=== PATIENT | male | born 1955 | race Caucasian/White ===

== ENCOUNTER 2017-05-25 06:30 | Outpatient (CLI) | payer BC ==
[~2017-05-25] VITALS: Ht 182.9 cm; Wt 106.6 kg
[~2017-05-25 06:30] MED LIST: AMLO5TAB2 PO; BNZ40T PO; CLON1000 PO; HCTZ12.5T PO; NEBI5TAB8 PO; NITR0.3T6 SL
[2017-05-25] MEDS ORDERED: DOXA4TAB PO (08:31)
[2017-05-25] MEDS ORDERED: BNZ40T PO (08:40)
[2017-05-25] MEDS ORDERED: NEBI5TAB8 PO (08:40)
[2017-05-25] MEDS ORDERED: AMLO5TAB2 PO (08:40)
== END 2017-05-25 08:42 ==
LOC: PREOP 06:30
PROVIDERS: ATTEND Surgery
DX: Z01.818 Encounter for other preprocedural examination (principal); L98.8 Other specified disorders of the skin and subcutaneous tissue

== ENCOUNTER 2017-05-30 10:35 | Day surgery (SDC) | payer BC, OTHER ==
[~2017-05-30] VITALS: Ht 182.9 cm; Wt 106.6 kg
[~2017-05-30 10:35] MED LIST changes: +DOXA4TAB PO
--- OUTSIDE RECORDS SUMMARY | 2017-05-30 10:37 | XMS REPORT | Continuity of Care Document ---
Author Author [facility] Organization [facility] Address Unknown Phone Unavailable Allergies Active Description Code Type Severity Reaction Onset Reported/Identified Relationship to Patient Clinical Status Yes nisoldipine [id number] Drug Allergy Moderate INCREASED HR AN 11/28/2011 Medications Problems Date Dx Coded Attending Type Code Diagnosis Diagnosed By 10/01/2015 CHUCK GARDINER MD Ot R05 10/01/2015 CHUCK GARDINER MD Ot R09.89 05/29/2016 CHUCK GARDINER MD Ot R05 COUGH 05/29/2016 CHUCK GARDINER MD Ot R09.89 OTH SYMPTOMS AND SIGNS INVOLVING THE CIR 05/29/2016 OSITO WHITLEY DO Ot M23.8X2 OTHER INTERNAL DERANGEMENTS OF LEFT KNEE 05/30/2016 OSITO WHITLEY DO Ot M23.8X2 OTHER INTERNAL DERANGEMENTS OF LEFT KNEE 06/13/2016 OSITO WHITLEY DO Ot M23.8X2 OTHER INTERNAL DERANGEMENTS OF LEFT KNEE 03/12/2017 CHUCK GARDINER MD Ot R05 COUGH 03/12/2017 CHUCK GARDINER MD Ot R09.89 OTH SYMPTOMS AND SIGNS INVOLVING THE CIR 03/12/2017 OSITO WHITLEY DO Ot M23.8X2 OTHER INTERNAL DERANGEMENTS OF LEFT KNEE 03/13/2017 CHUCK GARDINER MD Ot R05 COUGH 03/13/2017 CHUCK GARDINER MD Ot R09.89 OTH SYMPTOMS AND SIGNS INVOLVING THE CIR 03/13/2017 OSITO WHITLEY DO Ot M23.8X2 OTHER INTERNAL DERANGEMENTS OF LEFT KNEE Procedures Results Encounters ACCT No. Visit Date/Time Discharge Status Pt. Type Provider Facility Loc./Unit Complaint [id number] 05/29/2016 07:52:00 2015 23:59:59 CLS Outpatient OSITO WHITLEY DO [facility] RAD TMM LT KNEE [id number] 04/28/2016 11:20:00 2015 23:59:59 CLS Outpatient ISABELA BUSBY APRN [facility] QUICK [id number] 09/20/2015 10:28:00 2015 23:59:59 CLS Outpatient ZULEYKA WISDOM, CHUCK Ramos [facility] RAD COUGH,FEVER [id number] 05/30/2017 12:30:00 PEN Preadmit TIFFANI WISDOM, RICHELLE Morales [facility]
[2017-05-30] MEDS ORDERED: fentaNYL INJECTION 100 MCG/2 ML AMP ONE (11:02)
[2017-05-30] MEDS ORDERED: proPOfol 200 MG/20 ML (DIPRIVAN) VIAL IV ONE (11:02)
[2017-05-30] MEDS ORDERED: MIDAZOLAM 2 MG/2 ML (VERSED) VIAL ONE (11:02)
[2017-05-30] MEDS ORDERED: ONDANSETRON 4 MG/2 ML (SDV) Z0FRAN ONE (11:02)
[2017-05-30] MEDS ORDERED: SEVOFLURANE (ULTANE) 15 ML INHAL SOLN ONE ×4 (11:02→13:22)
[2017-05-30] MEDS ORDERED: DEXAMETHASONE 10 MG/ML (DECADRON) 1 ML VIAL ONE (11:02)
[2017-05-30] MEDS ORDERED: LIDOCAINE PF 2% 5 ML (XYLOCAINE) VIAL ONE (11:02)
[2017-05-30] MEDS ORDERED: CATHETER FLUSH 10 ML SYR IV PRN (11:15)
[2017-05-30] MEDS ORDERED: ceFAZolin 2 GM/NS 50 ML IV ONE (11:15)
[2017-05-30 11:22] VITALS: BP 176/109
[2017-05-30] MEDS ORDERED: BUP/EPI 0.5% 1:200,000 (MARCAINE) 10ML VIAL IJ ONE (11:56)
[2017-05-30] MEDS ORDERED: LACTATED RINGERS 1,000 ML IV PRN (12:00)
--- NOTE | 2017-05-30 12:17 | Progress Note-Pre Operative ---
Pre-Operative Progress Note H&P Reviewed The H&P was reviewed, patient examined and no changes noted. Date Seen by Provider: May 17, 2017 Time Seen by Provider: 13:20 Date H&P Reviewed: May 30, 2017 Time H&P Reviewed: 12:16 Pre-Operative Diagnosis: Skin lesions 6 RICHELLE NIXON MD May 30, 2017 12:17 pm
--- NOTE | 2017-05-30 13:58 | Operative Report ---
Operative Report Date of Procedure/Surgery May 30, 2017 Surgeon (s) RICHELLE NIXON MD Armature Winder Helper Repair (s): Zayra Dixon (Med Student) Post-Operative Diagnosis Same Procedure Performed Excision of skin lesions 6 Description of Procedure Anesthesia Type: General Estimated blood loss (mL): Minimal Specimen(s) collected/removed skin lesions 6 Description of the Procedure Indication for procedure: This gentleman presented with a pigmented lesions varying in size from 1-3 cm, involving the right distal leg, left distal leg and the left proximal leg, right medial and lateral thigh and the left postauricular region, requiring histologic confirmation. He was therefore offered full-thickness excision under general anesthetic to achieve this. Informed consent was obtained after reviewing the procedures in detail. Description of procedures:he was placed supine on the operative table and general anesthesia induced. IV antibiotics were administered to prevent wound infection. The involved areas were prepared and draped in the usual sterile manner. 1. Excision of skin lesion right leg: After adequate and septic perforation, an elliptical incision about 2 cm long was made and the lesion excised down to the subcutaneous tissue. The defect was approximated using 3-0 nylon sutures 2. Excision of skin lesion left distal leg: A similar excision was performed by making an incision 2 cm long by 1 cm wide. The defect was closed using 4-0 nylon sutures 3.Excision of 2 cm skin lesion left proximal leg: The vertical incision about 2- 1/2 cm long by 1/2 cm wide was made and the lesion excised down to the subcutaneous tissue. It was approximated using 4-0 nylon, in an interrupted fashion. 4. Excision of lesion right medial thigh: this was the largest of all the lesions measuring at least 3 cm in diameter. An elliptical incision about 5 cm long by 4 cm in width was made, in a transverse fashion and the lesion excised down to the subcutaneous tissue. Hemostasis was achieved using cautery and the defect closed using interrupted 4-0 nylon sutures. 5. Excision of lesion right lateral thigh: An incision about 2 cm in length by 1/2 cm in width was made in a transverse fashion and lesion excised down to the subcutaneous tissue. The defect was closed using interrupted 4-0 nylon sutures. 6. Excision of lesion left postauricular region: An elliptical incision 2 cm long by 1/2 cm in width was made and the lesion excised down to the subcutaneous tissue. The defect was closed using 6-0 nylon in an interrupted fashion. Pre--emptive analgesia was established using after percent Marcaine with epinephrine around each of the lesions independently. He tolerated the procedure well, was extubated in the operating room and taken to the recovery room in a stable condition. Findings of the Procedure See op report Allergies and Home Medications Allergies Coded Allergies: nisoldipine (Unverified Allergy, Intermediate, INCREASED HR AND RED SKIN , 05/25/17) Home Medications Amlodipine Besylate 5 Mg Tablet, 5 MG PO DAILY, (Reported) Benazepril HCl 40 Mg Tab, 40 MG PO DAILY, (Reported) Doxazosin Mesylate 4 Mg Tablet, 4 MG PO BID, (Reported) Nebivolol HCl 5 Mg Tablet, 5 MG PO DAILY, (Reported) RICHELLE NIXON MD May 30, 2017 1:58 pm
[2017-05-30] MEDS ORDERED: HYDR-3812 PO (13:59)
[2017-05-30] MEDS ORDERED: morphine INJ 10 MG/ML 1ML (SYR OR VIAL) IVP PRN (14:00)
[2017-05-30] MEDS ORDERED: ONDANSETRON 4 MG/2 ML (SDV) Z0FRAN IVP PRN (14:00)
--- NOTE | 2017-05-30 14:00 | Discharge Inst-Simple/Standard ---
Discharge Inst-Standard Discharge Medications New, Converted or Re-Newed RX: RX on Chart Patient Instructions/Follow Up Plan of Care/Instructions/FU: Band-Aids may be removed in 48 hours. Follow-up with my nurse in 2 weeks for suture removal Activity as Tolerated: Yes Discharge Diet: No Restrictions RICHELLE NIXON MD May 30, 2017 2:00 pm
[2017-05-30 15:01] VITALS: BP 150/89
[2017-05-30 15:25] VITALS: BP 137/69
[2017-05-30 15:30] VITALS: BP 137/69
== END 2017-05-30 15:45 | disposition home or self-care (01) ==
LOC: SDC 10:35
PROVIDERS: ATTEND Surgery
DX: D23.71 Other benign neoplasm of skin of right lower limb, including hip (principal); L57.0 Actinic keratosis; L82.1 Other seborrheic keratosis; Z11.2 Encounter for screening for other bacterial diseases; I10 Essential (primary) hypertension; Z79.899 Other long term (current) drug therapy; Z87.891 Personal history of nicotine dependence
CPT/HCPCS: 87081

== ENCOUNTER 2017-11-30 09:22 | Outpatient (RCR) | payer BC ==
[2017-09-05 10:11] LABS: ABSOLUTE RETIC # 79 10e9/L (24-90); HEMATOCRIT 37 % (40-54); HEMOGLOBIN 12.3 G/DL (13.3-17.7); MEAN CORPUSCULAR HEMOGLOBIN 30 PG (25-34); MEAN CORPUSCULAR HGB CONC 33 G/DL (32-36); MEAN CORPUSCULAR VOLUME 92 FL (80-99); PLATELET COUNT 69 10^3/uL (130-400); RED BLOOD COUNT 4.06 10^6/uL (4.35-5.85); RED CELL DISTRIBUTION WIDTH 15.6 % (10.0-14.5); RETICULOCYTE % 1.94 % (0.50-2.40)
[2017-09-05 10:15] LABS: WHITE BLOOD COUNT 107.6 10^3/uL (4.3-11.0)
[2017-09-05 10:44] LABS: ALANINE AMINOTRANSFERASE 22 U/L (0-55); ALKALINE PHOSPHATASE 67 U/L (40-136); BILIRUBIN,TOTAL 0.4 MG/DL (0.1-1.0); BUN/CREATININE RATIO 21; CALCIUM 9.1 MG/DL (8.5-10.1); CARBON DIOXIDE 26 MMOL/L (21-32); CHLORIDE 104 MMOL/L (98-107); CREATININE SERUM 0.95 MG/DL (0.60-1.30); GFR ESTIMATED > 60; GLUCOSE 125 MG/DL (70-105); POTASSIUM 3.8 MMOL/L (3.6-5.0); SODIUM 140 MMOL/L (135-145); TOTAL PROTEIN 7.4 GM/DL (6.4-8.2)
[2017-09-05 10:47] LABS: ERYTHROCYTE SEDIMENTATION RATE 6 MM/HR (0-30)
[2017-09-05 11:24] LABS: BAND NEUTROPHILS 6 %; BASOPHILS % (MANUAL) 1 %; LYMPHOCYTES % (MANUAL) 3 %; METAMYELOCYTES % 22 %; MONOCYTES % (MANUAL) 6 %; MYELOCYTES % 8 %; NEUTROPHILS % (MANUAL) 54 %; RBC MORPH NORMAL
[2017-09-06 06:30] LABS: HEPATITIS C ANTIBODY C Non-Reactive (Non-Reactive)
[2017-09-20 08:31] LABS: BASOPHILS # (AUTO) 0.2 10^3/uL (0.0-0.1); BASOPHILS % (AUTO) 2 % (0-10); EOSINOPHILS # (AUTO) 0.1 10^3/uL (0.0-0.3); EOSINOPHILS % (AUTO) 1 % (0-10); HEMATOCRIT 35 % (40-54); LYMPHOCYTES # (AUTO) 1.2 X 10^3 (1.0-4.0); LYMPHOCYTES % (AUTO) 10 % (12-44); MEAN CORPUSCULAR HEMOGLOBIN 31 PG (25-34); MEAN CORPUSCULAR HGB CONC 34 G/DL (32-36); MEAN CORPUSCULAR VOLUME 90 FL (80-99); MEAN PLATELET VOLUME 9.4 FL (7.4-10.4); MONOCYTES # (AUTO) 0.6 X 10^3 (0.0-1.0); MONOCYTES % (AUTO) 5 % (0-12); NEUTROPHILS % (AUTO) 83 % (42-75); PLATELET COUNT 78 10^3/uL (130-400); RED BLOOD COUNT 3.92 10^6/uL (4.35-5.85); RED CELL DISTRIBUTION WIDTH 15.9 % (10.0-14.5)
[2017-09-20 08:51] LABS: ALANINE AMINOTRANSFERASE 29 U/L (0-55); ALBUMIN 3.9 GM/DL (3.2-4.5); ALKALINE PHOSPHATASE 57 U/L (40-136); BILIRUBIN,TOTAL 0.5 MG/DL (0.1-1.0); BUN/CREATININE RATIO 26; CALCIUM 8.8 MG/DL (8.5-10.1); CARBON DIOXIDE 23 MMOL/L (21-32); CHLORIDE 105 MMOL/L (98-107); CREATININE SERUM 0.84 MG/DL (0.60-1.30); GFR ESTIMATED > 60; GLUCOSE 149 MG/DL (70-105); POTASSIUM 3.9 MMOL/L (3.6-5.0); SODIUM 137 MMOL/L (135-145)
[2017-09-20 08:58] LABS: ANISOCYTOSIS SLIGHT; BAND NEUTROPHILS 5 %; BASOPHILS % (MANUAL) 5 %; EOSINOPHILS % (MANUAL) 1 %; LYMPHOCYTES % (MANUAL) 13 %; MONOCYTES % (MANUAL) 5 %; NEUTROPHILS % (MANUAL) 71 %; POIKILOCYTOSIS SLIGHT; POLYCHROMASIA SLIGHT; TOXIC GRANULATION/VACUOLAZATIO 1+
[2017-10-11 09:10] LABS: HEMOGLOBIN 11.2 G/DL (13.3-17.7); RED BLOOD COUNT 3.44 10^6/uL (4.35-5.85); WHITE BLOOD COUNT 3.3 10^3/uL (4.3-11.0)
[2017-10-11 09:11] LABS: BASOPHILS % (AUTO) 0 % (0-10); EOSINOPHILS % (AUTO) 0 % (0-10); HEMATOCRIT 33 % (40-54); LYMPHOCYTES # (AUTO) 0.5 X 10^3 (1.0-4.0); LYMPHOCYTES % (AUTO) 15 % (12-44); MEAN CORPUSCULAR HEMOGLOBIN 33 PG (25-34); MEAN CORPUSCULAR HGB CONC 34 G/DL (32-36); MEAN CORPUSCULAR VOLUME 97 FL (80-99); MEAN PLATELET VOLUME 8.8 FL (7.4-10.4); MONOCYTES # (AUTO) 0.2 X 10^3 (0.0-1.0); MONOCYTES % (AUTO) 7 % (0-12); NEUTROPHILS # (AUTO) 2.6 X 10^3 (1.8-7.8); NEUTROPHILS % (AUTO) 78 % (42-75); PLATELET COUNT 96 10^3/uL (130-400); RED CELL DISTRIBUTION WIDTH 21.9 % (10.0-14.5)
[2017-10-11 09:36] LABS: ALANINE AMINOTRANSFERASE 11 U/L (0-55); ALBUMIN 3.9 GM/DL (3.2-4.5); ALKALINE PHOSPHATASE 68 U/L (40-136); BILIRUBIN,TOTAL 0.9 MG/DL (0.1-1.0); BUN/CREATININE RATIO 16; CALCIUM 8.6 MG/DL (8.5-10.1); CARBON DIOXIDE 28 MMOL/L (21-32); CHLORIDE 105 MMOL/L (98-107); CREATININE SERUM 1.17 MG/DL (0.60-1.30); GFR ESTIMATED > 60; GLUCOSE 150 MG/DL (70-105); POTASSIUM 4.2 MMOL/L (3.6-5.0); SODIUM 137 MMOL/L (135-145); TOTAL PROTEIN 6.7 GM/DL (6.4-8.2)
[2017-11-09 08:37] LABS: BASOPHILS % (AUTO) 7 % (0-10); EOSINOPHILS % (AUTO) 2 % (0-10); HEMATOCRIT 31 % (40-54); HEMOGLOBIN 10.5 G/DL (13.3-17.7); LYMPHOCYTES # (AUTO) 0.3 X 10^3 (1.0-4.0); LYMPHOCYTES % (AUTO) 55 % (12-44); MEAN CORPUSCULAR HEMOGLOBIN 32 PG (25-34); MEAN CORPUSCULAR HGB CONC 34 G/DL (32-36); MEAN CORPUSCULAR VOLUME 94 FL (80-99); MEAN PLATELET VOLUME 8.5 FL (7.4-10.4); MONOCYTES # (AUTO) 0.2 X 10^3 (0.0-1.0); MONOCYTES % (AUTO) 34 % (0-12); NEUTROPHILS % (AUTO) 2 % (42-75); PLATELET COUNT 155 10^3/uL (130-400); RED BLOOD COUNT 3.32 10^6/uL (4.35-5.85)
[2017-11-09 08:45] LABS: WHITE BLOOD COUNT 0.6 10^3/uL (4.3-11.0)
[2017-11-09 09:01] LABS: ALANINE AMINOTRANSFERASE 14 U/L (0-55); ALBUMIN 3.7 GM/DL (3.2-4.5); ALKALINE PHOSPHATASE 74 U/L (40-136); BILIRUBIN,TOTAL 0.6 MG/DL (0.1-1.0); BUN/CREATININE RATIO 13; CALCIUM 8.6 MG/DL (8.5-10.1); CARBON DIOXIDE 25 MMOL/L (21-32); CHLORIDE 103 MMOL/L (98-107); CREATININE SERUM 1.17 MG/DL (0.60-1.30); GFR ESTIMATED > 60; GLUCOSE 183 MG/DL (70-105); POTASSIUM 3.7 MMOL/L (3.6-5.0); SODIUM 137 MMOL/L (135-145); TOTAL PROTEIN 6.8 GM/DL (6.4-8.2)
[2017-11-09 09:17] LABS: LYMPHOCYTES % (MANUAL) 58 %; NEUTROPHILS % (MANUAL) 7 %
[2017-11-09 09:18] LABS: EOSINOPHILS % (MANUAL) 1 %; MONOCYTES % (MANUAL) 34 %; RBC MORPH NORMAL
[2017-11-16 08:46] LABS: HEMATOCRIT 33 % (40-54); MEAN CORPUSCULAR HEMOGLOBIN 31 PG (25-34); MEAN CORPUSCULAR HGB CONC 34 G/DL (32-36); MEAN CORPUSCULAR VOLUME 93 FL (80-99); PLATELET COUNT 189 10^3/uL (130-400); RED BLOOD COUNT 3.52 10^6/uL (4.35-5.85); RED CELL DISTRIBUTION WIDTH 15.2 % (10.0-14.5)
[2017-11-16 08:50] LABS: WHITE BLOOD COUNT 0.9 10^3/uL (4.3-11.0)
[2017-11-16 09:52] LABS: BILIRUBIN,URINE NEGATIVE (NEGATIVE); CLARITY,URINE CLEAR; COLOR,URINE YELLOW; GLUCOSE, URINE (UA) NEGATIVE (NEGATIVE); KETONES,URINE NEGATIVE (NEGATIVE); LEUKOCYTE ESTERASE ,URINE 1+ (NEGATIVE); NITRITE,URINE NEGATIVE (NEGATIVE); PH,URINE 6 (5-9); PROTEIN,URINE 3+ (NEGATIVE); UROBILINOGEN,URINE 1 MG/DL (NORMAL)
[2017-11-16 10:03] LABS: BACTERIA,URINE TRACE /HPF; SQUAMOUS EPITHELIAL CELL,UR 0-2 /HPF; WBC,URINE RARE /HPF
--- NOTE | 2017-11-16 11:38 | Diagnostic Imaging Report ---
INDICATION: Burning in the upper anterior chest. TIME OF EXAM: 10:07 a.m. COMPARISON: Comparison is made with prior study from 09/20/2015. FINDINGS: The heart size is normal. The pulmonary vascularity is unremarkable. The lungs are clear. No infiltrate, effusion or pneumothorax is detected. IMPRESSION: No acute cardiopulmonary process is detected. Dictated by: Dictated on workstation # [id number]
[2017-11-19 10:00] LABS: BASOPHILS % (AUTO) 2 % (0-10); EOSINOPHILS # (AUTO) 0.1 10^3/uL (0.0-0.3); EOSINOPHILS % (AUTO) 4 % (0-10); HEMATOCRIT 33 % (40-54); HEMOGLOBIN 10.9 G/DL (13.3-17.7); LYMPHOCYTES # (AUTO) 0.7 X 10^3 (1.0-4.0); LYMPHOCYTES % (AUTO) 56 % (12-44); MEAN CORPUSCULAR HEMOGLOBIN 30 PG (25-34); MEAN CORPUSCULAR HGB CONC 33 G/DL (32-36); MEAN CORPUSCULAR VOLUME 91 FL (80-99); MEAN PLATELET VOLUME 8.5 FL (7.4-10.4); MONOCYTES # (AUTO) 0.3 X 10^3 (0.0-1.0); MONOCYTES % (AUTO) 27 % (0-12); NEUTROPHILS # (AUTO) 0.1 X 10^3 (1.8-7.8); NEUTROPHILS % (AUTO) 11 % (42-75); PLATELET COUNT 200 10^3/uL (130-400); RED BLOOD COUNT 3.59 10^6/uL (4.35-5.85); RED CELL DISTRIBUTION WIDTH 14.8 % (10.0-14.5)
[2017-11-19 10:02] LABS: WHITE BLOOD COUNT 1.2 10^3/uL (4.3-11.0)
[2017-11-19 10:16] LABS: ALBUMIN 3.7 GM/DL (3.2-4.5); BILIRUBIN,TOTAL 0.3 MG/DL (0.1-1.0); CREATININE SERUM 1.22 MG/DL (0.60-1.30); POTASSIUM 3.7 MMOL/L (3.6-5.0); TOTAL PROTEIN 7.1 GM/DL (6.4-8.2)
[2017-11-23 09:40] LABS: BASOPHILS # (AUTO) 0.1 10^3/uL (0.0-0.1); BASOPHILS % (AUTO) 2 % (0-10); EOSINOPHILS # (AUTO) 0.1 10^3/uL (0.0-0.3); EOSINOPHILS % (AUTO) 2 % (0-10); HEMATOCRIT 35 % (40-54); HEMOGLOBIN 11.8 G/DL (13.3-17.7); LYMPHOCYTES # (AUTO) 1.2 X 10^3 (1.0-4.0); LYMPHOCYTES % (AUTO) 19 % (12-44); MEAN CORPUSCULAR HEMOGLOBIN 30 PG (25-34); MEAN CORPUSCULAR HGB CONC 33 G/DL (32-36); MEAN CORPUSCULAR VOLUME 91 FL (80-99); MEAN PLATELET VOLUME 8.3 FL (7.4-10.4); MONOCYTES # (AUTO) 0.5 X 10^3 (0.0-1.0); MONOCYTES % (AUTO) 8 % (0-12); NEUTROPHILS # (AUTO) 4.2 X 10^3 (1.8-7.8); NEUTROPHILS % (AUTO) 69 % (42-75); PLATELET COUNT 201 10^3/uL (130-400); RED BLOOD COUNT 3.88 10^6/uL (4.35-5.85); RED CELL DISTRIBUTION WIDTH 14.6 % (10.0-14.5); WHITE BLOOD COUNT 6.1 10^3/uL (4.3-11.0)
[~2017-11-30 09:22] MED LIST changes: +ACHD5005 PO; +CEFTRIAXONE IV ONE; +LEVOFLOXACIN IV ONE; +NS IV ONE
[2017-11-30 09:33] LABS: BASOPHILS % (AUTO) 1 % (0-10); EOSINOPHILS % (AUTO) 1 % (0-10); HEMATOCRIT 36 % (40-54); HEMOGLOBIN 12.2 G/DL (13.3-17.7); LYMPHOCYTES # (AUTO) 1.1 X 10^3 (1.0-4.0); LYMPHOCYTES % (AUTO) 24 % (12-44); MEAN CORPUSCULAR HEMOGLOBIN 31 PG (25-34); MEAN CORPUSCULAR HGB CONC 34 G/DL (32-36); MEAN CORPUSCULAR VOLUME 92 FL (80-99); MEAN PLATELET VOLUME 8.7 FL (7.4-10.4); MONOCYTES # (AUTO) 0.2 X 10^3 (0.0-1.0); MONOCYTES % (AUTO) 5 % (0-12); NEUTROPHILS # (AUTO) 3.2 X 10^3 (1.8-7.8); NEUTROPHILS % (AUTO) 70 % (42-75); PLATELET COUNT 174 10^3/uL (130-400); RED BLOOD COUNT 3.98 10^6/uL (4.35-5.85); RED CELL DISTRIBUTION WIDTH 15.2 % (10.0-14.5); WHITE BLOOD COUNT 4.5 10^3/uL (4.3-11.0)
== END 2017-12-04 | disposition home or self-care (01) ==
LOC: ONC 09:22
PROVIDERS: ATTEND Internal Medicine Hematology & Oncology
DX: C92.10 Chronic myeloid leukemia, BCR/ABL-positive, not having achieved remission (principal); Z85.820 Personal history of malignant melanoma of skin; I10 Essential (primary) hypertension; Z79.899 Other long term (current) drug therapy
CPT/HCPCS: 36415; 38222; 71046; 80053; 80074; 81000; 83605; 83615; 85007; 85025; 85027; 85045; 85652; 87040; 88184; 88185; 88305; 88311; 88313; 88368; 88369; 96365; 96367; 99213; 99214

== ENCOUNTER 2018-02-28 08:33 | Outpatient (RCR) | payer BC ==
[2017-12-05 10:18] LABS: BASOPHILS % (AUTO) 1 % (0-10); EOSINOPHILS % (AUTO) 1 % (0-10); HEMATOCRIT 35 % (40-54); HEMOGLOBIN 11.8 G/DL (13.3-17.7); LYMPHOCYTES # (AUTO) 0.7 X 10^3 (1.0-4.0); LYMPHOCYTES % (AUTO) 18 % (12-44); MEAN CORPUSCULAR HEMOGLOBIN 30 PG (25-34); MEAN CORPUSCULAR HGB CONC 33 G/DL (32-36); MEAN CORPUSCULAR VOLUME 91 FL (80-99); MONOCYTES # (AUTO) 0.2 X 10^3 (0.0-1.0); MONOCYTES % (AUTO) 5 % (0-12); NEUTROPHILS % (AUTO) 76 % (42-75); PLATELET COUNT 177 10^3/uL (130-400); RED BLOOD COUNT 3.88 10^6/uL (4.35-5.85); RED CELL DISTRIBUTION WIDTH 14.9 % (10.0-14.5); WHITE BLOOD COUNT 3.9 10^3/uL (4.3-11.0)
[2017-12-05 10:40] LABS: ALANINE AMINOTRANSFERASE 12 U/L (0-55); ALKALINE PHOSPHATASE 61 U/L (40-136); BILIRUBIN,TOTAL 0.5 MG/DL (0.1-1.0); BUN/CREATININE RATIO 16; CALCIUM 8.8 MG/DL (8.5-10.1); CARBON DIOXIDE 28 MMOL/L (21-32); CHLORIDE 105 MMOL/L (98-107); CREATININE SERUM 1.13 MG/DL (0.60-1.30); GFR ESTIMATED > 60; GLUCOSE 112 MG/DL (70-105); SODIUM 139 MMOL/L (135-145); TOTAL PROTEIN 6.7 GM/DL (6.4-8.2)
[2017-12-19 09:21] LABS: BASOPHILS % (AUTO) 1 % (0-10); EOSINOPHILS # (AUTO) 0.1 10^3/uL (0.0-0.3); EOSINOPHILS % (AUTO) 2 % (0-10); HEMATOCRIT 35 % (40-54); LYMPHOCYTES # (AUTO) 0.7 X 10^3 (1.0-4.0); LYMPHOCYTES % (AUTO) 20 % (12-44); MEAN CORPUSCULAR HEMOGLOBIN 31 PG (25-34); MEAN CORPUSCULAR HGB CONC 34 G/DL (32-36); MEAN CORPUSCULAR VOLUME 90 FL (80-99); MEAN PLATELET VOLUME 8.3 FL (7.4-10.4); MONOCYTES # (AUTO) 0.2 X 10^3 (0.0-1.0); MONOCYTES % (AUTO) 6 % (0-12); NEUTROPHILS # (AUTO) 2.5 X 10^3 (1.8-7.8); NEUTROPHILS % (AUTO) 71 % (42-75); PLATELET COUNT 159 10^3/uL (130-400); RED CELL DISTRIBUTION WIDTH 14.5 % (10.0-14.5); WHITE BLOOD COUNT 3.4 10^3/uL (4.3-11.0)
[2018-01-02 08:44] LABS: BASOPHILS % (AUTO) 1 % (0-10); EOSINOPHILS # (AUTO) 0.1 10^3/uL (0.0-0.3); EOSINOPHILS % (AUTO) 1 % (0-10); HEMATOCRIT 36 % (40-54); HEMOGLOBIN 12.8 G/DL (13.3-17.7); LYMPHOCYTES # (AUTO) 0.8 X 10^3 (1.0-4.0); LYMPHOCYTES % (AUTO) 21 % (12-44); MEAN CORPUSCULAR HEMOGLOBIN 32 PG (25-34); MEAN CORPUSCULAR HGB CONC 36 G/DL (32-36); MEAN CORPUSCULAR VOLUME 88 FL (80-99); MEAN PLATELET VOLUME 8.4 FL (7.4-10.4); MONOCYTES # (AUTO) 0.2 X 10^3 (0.0-1.0); MONOCYTES % (AUTO) 5 % (0-12); NEUTROPHILS # (AUTO) 2.8 X 10^3 (1.8-7.8); NEUTROPHILS % (AUTO) 72 % (42-75); PLATELET COUNT 137 10^3/uL (130-400); RED BLOOD COUNT 4.04 10^6/uL (4.35-5.85); RED CELL DISTRIBUTION WIDTH 13.9 % (10.0-14.5); WHITE BLOOD COUNT 3.9 10^3/uL (4.3-11.0)
[2018-01-02 09:06] LABS: ALANINE AMINOTRANSFERASE 15 U/L (0-55); ALBUMIN 3.9 GM/DL (3.2-4.5); ALKALINE PHOSPHATASE 69 U/L (40-136); BILIRUBIN,TOTAL 0.6 MG/DL (0.1-1.0); BUN/CREATININE RATIO 18; CALCIUM 8.8 MG/DL (8.5-10.1); CARBON DIOXIDE 29 MMOL/L (21-32); CHLORIDE 103 MMOL/L (98-107); CREATININE SERUM 0.94 MG/DL (0.60-1.30); GFR ESTIMATED > 60; GLUCOSE 141 MG/DL (70-105); POTASSIUM 3.9 MMOL/L (3.6-5.0); SODIUM 140 MMOL/L (135-145); TOTAL PROTEIN 6.7 GM/DL (6.4-8.2)
[2018-01-16 08:29] LABS: BASOPHILS % (AUTO) 1 % (0-10); EOSINOPHILS # (AUTO) 0.1 10^3/uL (0.0-0.3); EOSINOPHILS % (AUTO) 2 % (0-10); HEMATOCRIT 37 % (40-54); HEMOGLOBIN 13.4 G/DL (13.3-17.7); LYMPHOCYTES # (AUTO) 0.9 X 10^3 (1.0-4.0); LYMPHOCYTES % (AUTO) 20 % (12-44); MEAN CORPUSCULAR HEMOGLOBIN 32 PG (25-34); MEAN CORPUSCULAR HGB CONC 36 G/DL (32-36); MEAN CORPUSCULAR VOLUME 88 FL (80-99); MEAN PLATELET VOLUME 8.7 FL (7.4-10.4); MONOCYTES # (AUTO) 0.2 X 10^3 (0.0-1.0); MONOCYTES % (AUTO) 4 % (0-12); NEUTROPHILS # (AUTO) 3.5 X 10^3 (1.8-7.8); NEUTROPHILS % (AUTO) 73 % (42-75); PLATELET COUNT 150 10^3/uL (130-400); RED BLOOD COUNT 4.24 10^6/uL (4.35-5.85); WHITE BLOOD COUNT 4.7 10^3/uL (4.3-11.0)
[2018-01-31 08:44] LABS: BASOPHILS % (AUTO) 0 % (0-10); EOSINOPHILS # (AUTO) 0.1 10^3/uL (0.0-0.3); EOSINOPHILS % (AUTO) 1 % (0-10); HEMATOCRIT 38 % (40-54); HEMOGLOBIN 13.3 G/DL (13.3-17.7); LYMPHOCYTES # (AUTO) 1.1 X 10^3 (1.0-4.0); LYMPHOCYTES % (AUTO) 21 % (12-44); MEAN CORPUSCULAR HEMOGLOBIN 30 PG (25-34); MEAN CORPUSCULAR HGB CONC 35 G/DL (32-36); MEAN CORPUSCULAR VOLUME 87 FL (80-99); MONOCYTES # (AUTO) 0.3 X 10^3 (0.0-1.0); MONOCYTES % (AUTO) 6 % (0-12); NEUTROPHILS # (AUTO) 3.7 X 10^3 (1.8-7.8); NEUTROPHILS % (AUTO) 72 % (42-75); PLATELET COUNT 151 10^3/uL (130-400); RED BLOOD COUNT 4.42 10^6/uL (4.35-5.85); RED CELL DISTRIBUTION WIDTH 14.4 % (10.0-14.5); WHITE BLOOD COUNT 5.1 10^3/uL (4.3-11.0)
[2018-01-31 09:08] LABS: ALANINE AMINOTRANSFERASE 16 U/L (0-55); ALBUMIN 3.9 GM/DL (3.2-4.5); ALKALINE PHOSPHATASE 77 U/L (40-136); BILIRUBIN,TOTAL 0.5 MG/DL (0.1-1.0); BUN/CREATININE RATIO 21; CALCIUM 8.8 MG/DL (8.5-10.1); CARBON DIOXIDE 26 MMOL/L (21-32); CHLORIDE 106 MMOL/L (98-107); CREATININE SERUM 0.92 MG/DL (0.60-1.30); GFR ESTIMATED > 60; GLUCOSE 125 MG/DL (70-105); SODIUM 139 MMOL/L (135-145); TOTAL PROTEIN 6.5 GM/DL (6.4-8.2)
[~2018-02-28 08:33] MED LIST changes: +BENA40TA5 PO; -CEFTRIAXONE IV ONE; -LEVOFLOXACIN IV ONE; -NS IV ONE
[2018-02-28 08:51] LABS: HEMOGLOBIN 12.8 G/DL (13.3-17.7); MEAN PLATELET VOLUME 8.2 FL (7.4-10.4); RED BLOOD COUNT 4.14 10^6/uL (4.35-5.85); RED CELL DISTRIBUTION WIDTH 14.4 % (10.0-14.5); WHITE BLOOD COUNT 5.5 10^3/uL (4.3-11.0)
== END 2018-03-05 | disposition home or self-care (01) ==
LOC: ONC 08:33
PROVIDERS: ATTEND Internal Medicine Hematology & Oncology
DX: C92.10 Chronic myeloid leukemia, BCR/ABL-positive, not having achieved remission (principal); Z85.820 Personal history of malignant melanoma of skin; I10 Essential (primary) hypertension; Z79.899 Other long term (current) drug therapy
CPT/HCPCS: 36415; 80053; 81206; 83615; 85025; 85027; 99213

== ENCOUNTER 2018-04-18 08:29 | Outpatient (RCR) | payer BC ==
[2018-04-04 08:22] LABS: BASOPHILS % (AUTO) 1 % (0-10); EOSINOPHILS # (AUTO) 0.1 10^3/uL (0.0-0.3); EOSINOPHILS % (AUTO) 2 % (0-10); HEMATOCRIT 38 % (40-54); HEMOGLOBIN 13.6 G/DL (13.3-17.7); LYMPHOCYTES # (AUTO) 0.8 X 10^3 (1.0-4.0); LYMPHOCYTES % (AUTO) 19 % (12-44); MEAN CORPUSCULAR HEMOGLOBIN 32 PG (25-34); MEAN CORPUSCULAR HGB CONC 36 G/DL (32-36); MEAN CORPUSCULAR VOLUME 89 FL (80-99); MEAN PLATELET VOLUME 8.7 FL (7.4-10.4); MONOCYTES # (AUTO) 0.2 X 10^3 (0.0-1.0); MONOCYTES % (AUTO) 5 % (0-12); NEUTROPHILS # (AUTO) 3.2 X 10^3 (1.8-7.8); NEUTROPHILS % (AUTO) 73 % (42-75); PLATELET COUNT 179 10^3/uL (130-400); RED BLOOD COUNT 4.22 10^6/uL (4.35-5.85); RED CELL DISTRIBUTION WIDTH 13.5 % (10.0-14.5); WHITE BLOOD COUNT 4.3 10^3/uL (4.3-11.0)
[2018-04-04 08:40] LABS: ALANINE AMINOTRANSFERASE 21 U/L (0-55); ALKALINE PHOSPHATASE 65 U/L (40-136); BILIRUBIN,TOTAL 0.7 MG/DL (0.1-1.0); BUN/CREATININE RATIO 17; CALCIUM 8.9 MG/DL (8.5-10.1); CARBON DIOXIDE 26 MMOL/L (21-32); CHLORIDE 103 MMOL/L (98-107); CREATININE SERUM 0.99 MG/DL (0.60-1.30); GFR ESTIMATED > 60; GLUCOSE 132 MG/DL (70-105); POTASSIUM 3.9 MMOL/L (3.6-5.0); SODIUM 137 MMOL/L (135-145); TOTAL PROTEIN 6.7 GM/DL (6.4-8.2)
[~2018-04-18 08:29] MED LIST changes: +AMLO5TAB7 PO
== END 2018-04-28 | disposition home or self-care (01) ==
LOC: ONC 08:29
PROVIDERS: ATTEND Internal Medicine Hematology & Oncology
DX: C92.10 Chronic myeloid leukemia, BCR/ABL-positive, not having achieved remission (principal); Z85.820 Personal history of malignant melanoma of skin; I10 Essential (primary) hypertension; Z79.899 Other long term (current) drug therapy
CPT/HCPCS: 36415; 80053; 81206; 83615; 85025; 99213

== ENCOUNTER 2018-05-13 05:23 | Outpatient (CLI) | payer BC ==
[~2018-05-13] VITALS: Ht 182.9 cm; Wt 106.6 kg
[2018-05-13] MEDS ORDERED: TAMS0.4C2 PO (10:51)
[2018-05-13] MEDS ORDERED: IMAT100T8 PO (10:51)
[2018-05-13] MEDS ORDERED: AMLO10TA6 PO (10:51)
== END 2018-05-13 11:12 | disposition home or self-care (01) ==
LOC: PREOP 05:23
PROVIDERS: ATTEND Surgery
DX: Z01.818 Encounter for other preprocedural examination (principal)

== ENCOUNTER 2018-05-15 11:15 | Day surgery (SDC) | payer BC ==
[~2018-05-15] VITALS: Ht 182.9 cm; Wt 106.6 kg
--- NOTE | 2018-05-15 10:16 | History & Physicial ---
History of Present Illness History of Present Illness Reason for visit/HPI To undergo robotic assisted repair of ventral hernia with mesh Date of Admission 05/15/18 Date Seen by a Provider: Apr 09, 2018 Time Seen by a Provider: 11:00 I consulted on this patient on 05/15/18 10:14 Attending Physician Richelle Nixon MD Admitting Physician Clemente Landers MD Consult Allergies and Home Medications Allergies Coded Allergies: nisoldipine (Unverified Allergy, Intermediate, INCREASED HR AND RED SKIN , 05/13/18) Home Medications Amlodipine Besylate 10 Mg Tablet, 10 MG PO DAILY, (Reported) Benazepril HCl 40 Mg Tab, 40 MG PO DAILY, (Reported) Doxazosin Mesylate 4 Mg Tablet, 4 MG PO DAILY, (Reported) Hydrocodone Bit/Acetaminophen 1 Each Tablet, 1-2 TAB PO 4-6HR PRN for PAIN Prescribed by: RICHELLE NIXON on 05/30/17 1359 Imatinib Mesylate 100 Mg Tablet, 200 MG PO DAILY, (Reported) Nebivolol HCl 5 Mg Tablet, 5 MG PO DAILY, (Reported) Tamsulosin HCl 0.4 Mg Cap.er.24h, 0.4 MG PO DAILY, (Reported) Patient Home Medication List Home Medication List Reviewed: Yes Past Iqgjsmz-Ubmkqk-Sppbbc Hx Patient Social History Marrital Status: Employed/Student: retired Former Smoker, Quit: May 25, 1994 Recent Hopitalizations: No Immunizations Up To Date Date of Pneumonia Vaccine: Apr 30, 2015 Date of Influenza Vaccine: Apr 30, 2017 Seasonal Allergies Seasonal Allergies: Yes Surgeries Yes Coronary Stent Respiratory No Cardiovascular Yes Hypertension Neurological No Reproductive System Hx Reproductive Disorders: No Sexually Transmitted Disease: No HIV/AIDS: No Gastrointestinal No Musculoskeletal Yes Arthritis Endocrine History of Endocrine Disorders: No HEENT Loss of Vision: Bilateral Hearing Impairment: Denies Cancer Yes Skin, Melanoma Blood Transfusions Adverse Reaction to a Blood Tr: No Review of Systems Constitutional: no symptoms reported EENTM: no symptoms reported Respiratory: no symptoms reported Cardiovascular: no symptoms reported Gastrointestinal: see HPI Genitourinary: no symptoms reported Musculoskeletal: no symptoms reported Skin: no symptoms reported Psychiatric/Neurological: No Symptoms Reported Physical Exam Vital Signs Capillary Refill : Height, Weight, BMI Height: 6'0.00" Weight: 235lbs. 0.0oz. [id number]; 31.9 BMI Method: General Appearance: No Apparent Distress Neck: Normal Inspection Respiratory: Lungs Clear Cardiovascular: Regular Rate, Rhythm Gastrointestinal: Non Tender, Hernia Extremity: Normal Inspection Neurologic/Psychiatric: Alert, Oriented x3 Skin: Warm/Dry Assessment/Plan Assessment and Plan Gentleman with a primary ventral hernia,for robotic assisted repair with mesh Admission Diagnosis Admission Status: Other (Outpt Proc) RICHELLE NIXON MD May 15, 2018 10:16
[~2018-05-15 11:15] MED LIST changes: +AMLO10TA6 PO; +IMAT100T8 PO; +TAMS0.4C2 PO
--- OUTSIDE RECORDS SUMMARY | 2018-05-15 11:18 | XMS REPORT | Continuity of Care Document ---
Author Author [facility] [address] Organization [facility] [address] Address Unknown Phone Unavailable Allergies Active Description Code Type Severity Reaction Onset Reported/Identified Relationship to Patient Clinical Status Yes nisoldipine [id number] Drug Allergy Moderate INCREASED HR AN 05/13/2018 Medications There is no data. Problems Date Dx Coded Attending Type Code Diagnosis Diagnosed By 10/01/2015 CHUCK GARDINER MD Ot R05 10/01/2015 CHUCK GARDINER MD R Ot R09.89 05/29/2016 CHUCK GARDINER MD Ot R05 COUGH 05/29/2016 CHUCK GARDINER MD R Ot R09.89 OTH SYMPTOMS AND SIGNS INVOLVING THE CIR 05/29/2016 ANGI DOOSITO Ot M23.8X2 OTHER INTERNAL DERANGEMENTS OF LEFT KNEE 05/30/2016 OSITO WHITLEY DO Ot M23.8X2 OTHER INTERNAL DERANGEMENTS OF LEFT KNEE 06/13/2016 OSITO WHITLEY DO Ot M23.8X2 OTHER INTERNAL DERANGEMENTS OF LEFT KNEE 03/12/2017 CHUCK GARDINER MD R Ot R05 COUGH 03/12/2017 CHUCK GARDINER MD R Ot R09.89 OTH SYMPTOMS AND SIGNS INVOLVING THE CIR 03/12/2017 OSITO WHITLEY DO Ot M23.8X2 OTHER INTERNAL DERANGEMENTS OF LEFT KNEE 03/13/2017 CHUCK GARDINER MD R Ot R05 COUGH 03/13/2017 CHUCK GARDINER MD R Ot R09.89 OTH SYMPTOMS AND SIGNS INVOLVING THE CIR 03/13/2017 OSITO WHITLEY DO Ot M23.8X2 OTHER INTERNAL DERANGEMENTS OF LEFT KNEE 05/24/2017 CHUCK GARDINER MD R Ot R05 COUGH 05/24/2017 CHUCK GARDINER MD R Ot R09.89 OTH SYMPTOMS AND SIGNS INVOLVING THE CIR 05/24/2017 OSITO WHITLEY DO Ot M23.8X2 OTHER INTERNAL DERANGEMENTS OF LEFT KNEE 05/24/2017 ZULEYKA WISDOM, CHUCK R Ot R05 COUGH 05/24/2017 CHUCK GARDINER MD Ot R09.89 OTH SYMPTOMS AND SIGNS INVOLVING THE CIR 05/24/2017 ANGI DO, OSITO Veliz Ot M23.8X2 OTHER INTERNAL DERANGEMENTS OF LEFT KNEE 05/25/2017 TIFFANI WISDOM, RICHELLE Morales Ot L98.8 OTH DISRD OF THE SKIN AND SUBCUTANEOUS T 05/25/2017 RICHELLE NIXON MD Ot Z01.818 ENCOUNTER FOR OTHER PREPROCEDURAL EXAMIN 05/25/2017 RICHELLE NIXON MD Ot L98.8 OTH DISRD OF THE SKIN AND SUBCUTANEOUS T 05/25/2017 RICHELLE NIXON MD Ot Z01.818 ENCOUNTER FOR OTHER PREPROCEDURAL EXAMIN 05/25/2017 RICHELLE NXION MD Ot L98.8 OTH DISRD OF THE SKIN AND SUBCUTANEOUS T 05/25/2017 RICHELLE NIXON MD Ot Z01.818 ENCOUNTER FOR OTHER PREPROCEDURAL EXAMIN 05/30/2017 RICHELLE NIXON MD Ot D23.71 OTH BENIGN NEOPLASM SKIN/ RIGHT LOWER LI 05/30/2017 RICHELLE NIXON MD Ot I10 ESSENTIAL (PRIMARY) HYPERTENSION 05/30/2017 RICHELLE NIXON MD Ot L57.0 ACTINIC KERATOSIS 05/30/2017 RICHELLE NIXON MD Ot L82.1 OTHER SEBORRHEIC KERATOSIS 05/30/2017 RICHELLE NIXON MD Ot Z11.2 ENCOUNTER FOR SCREENING FOR OTHER BACTER 05/30/2017 RICHELLE NIXON MD Ot Z79.899 OTHER SENIOR CARE (CURRENT) DRUG THERAPY 05/30/2017 RICHELLE NIXON MD Ot Z87.891 PERSONAL HISTORY OF NICOTINE DEPENDENCE 06/01/2017 RICHELLE NIXON MD Ot D23.71 OTH BENIGN NEOPLASM SKIN/ RIGHT LOWER LI 06/01/2017 RICHELLE NIXON MD Ot I10 ESSENTIAL (PRIMARY) HYPERTENSION 06/01/2017 RICHELLE NIXON MD Ot L57.0 ACTINIC KERATOSIS 06/01/2017 RICHELLE NIXON MD Ot L82.1 OTHER SEBORRHEIC KERATOSIS 06/01/2017 RICHELLE NIXON MD Ot Z11.2 ENCOUNTER FOR SCREENING FOR OTHER BACTER 06/01/2017 TIFFANI WISDOM, RICHELLE M Ot 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 06/01/2017 TIFFANI WISDOM, RICHELLE M Ot Z87.891 PERSONAL HISTORY OF NICOTINE DEPENDENCE 07/13/2017 TIFFANI WISDOM, RICHELLE M Ot D23.71 OTH BENIGN NEOPLASM SKIN/ RIGHT LOWER LI 07/13/2017 RICHELLE NIXON MD M Ot I10 ESSENTIAL (PRIMARY) HYPERTENSION 07/13/2017 TIFFANI WISDOM, RICHELLE M Ot L57.0 ACTINIC KERATOSIS 07/13/2017 RICHELLE NIXON MD M Ot L82.1 OTHER SEBORRHEIC KERATOSIS 07/13/2017 RICHELLE NIXON MD M Ot Z11.2 ENCOUNTER FOR SCREENING FOR OTHER BACTER 07/13/2017 RICHELLE NIXNO MD M Ot 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 07/13/2017 RICHELLE NIXON MD M Ot Z87.891 PERSONAL HISTORY OF NICOTINE DEPENDENCE 09/20/2017 TORI NICHOLS MD Ot D72.829 ELEVATED WHITE BLOOD CELL COUNT, UNSPECI 09/20/2017 TORI NICHOLS MD Ot I10 ESSENTIAL (PRIMARY) HYPERTENSION 09/20/2017 TORI NICHOLS MD Ot Z79.899 OTHER SENIOR CARE (CURRENT) DRUG THERAPY 09/20/2017 TORI NICHOLS MD Ot Z85.820 PERSONAL HISTORY OF MALIGNANT MELANOMA O 10/12/2017 TORI NICHOLS MD Ot D72.829 ELEVATED WHITE BLOOD CELL COUNT, UNSPECI 10/12/2017 TORI NICHOLS MD Ot I10 ESSENTIAL (PRIMARY) HYPERTENSION 10/12/2017 TORI NICHOLS MD Ot 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 10/12/2017 TORI NICHOLS MD Ot Z85.820 PERSONAL HISTORY OF MALIGNANT MELANOMA O 12/04/2017 TORI NICHOLS MD Ot D72.829 ELEVATED WHITE BLOOD CELL COUNT, UNSPECI 12/04/2017 TORI NICHOLS MD Ot I10 ESSENTIAL (PRIMARY) HYPERTENSION 12/04/2017 TORI NICHOLS MD Ot 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 12/04/2017 TORI NICHOLS MD Ot Z85.820 PERSONAL HISTORY OF MALIGNANT MELANOMA O 12/05/2017 TORI NICHOLS MD Ot D72.829 ELEVATED WHITE BLOOD CELL COUNT, UNSPECI 12/05/2017 TORI NICHOLS MD Ot I10 ESSENTIAL (PRIMARY) HYPERTENSION 12/05/2017 TORI NICHOLS MD Ot 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 12/05/2017 TORI NICHOLS MD Ot Z85.820 PERSONAL HISTORY OF MALIGNANT MELANOMA O 12/05/2017 TORI NICHOLS MD Ot 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, BCR/ABL-POSITIVE, 12/05/2017 TORI NICHOLS MD Ot I10 ESSENTIAL (PRIMARY) HYPERTENSION 12/05/2017 TORI NICHOLS MD Ot Z79.899 OTHER SENIOR CARE (CURRENT) DRUG THERAPY 12/05/2017 TORI NICHOLS MD Ot Z85.820 PERSONAL HISTORY OF MALIGNANT MELANOMA O 01/09/2018 TORI NICHOLS MD Ot D72.829 ELEVATED WHITE BLOOD CELL COUNT, UNSPECI 01/09/2018 TORI NICHOLS MD Ot I10 ESSENTIAL (PRIMARY) HYPERTENSION 01/09/2018 TORI NICHOLS MD Ot Z79.899 OTHER SENIOR CARE (CURRENT) DRUG THERAPY 01/09/2018 TORI NICHOLS MD Ot Z85.820 PERSONAL HISTORY OF MALIGNANT MELANOMA O 01/16/2018 TORI NICHOLS MD Ot 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, BCR/ABL-POSITIVE, 01/16/2018 TORI NICHOLS MD Ot I10 ESSENTIAL (PRIMARY) HYPERTENSION 01/16/2018 TORI NICHOLS MD Ot 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 01/16/2018 TORI NICHOLS MD Ot Z85.820 PERSONAL HISTORY OF MALIGNANT MELANOMA O 04/05/2018 TORI NICHOLS MD Ot 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, BCR/ABL-POSITIVE, 04/05/2018 TORI NICHOLS MD Ot I10 ESSENTIAL (PRIMARY) HYPERTENSION 04/05/2018 TORI NICHOLS MD Ot 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 04/05/2018 TORI NICHOLS MD Ot Z85.820 PERSONAL HISTORY OF MALIGNANT MELANOMA O 04/28/2018 TORI NICHOLS MD Ot 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, BCR/ABL-POSITIVE, 04/28/2018 TORI NICHOLS MD Ot I10 ESSENTIAL (PRIMARY) HYPERTENSION 04/28/2018 TORI NICHOLS MD Ot 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 04/28/2018 TORI NICHOLS MD Ot Z85.820 PERSONAL HISTORY OF MALIGNANT MELANOMA O 05/01/2018 MAGDALENA WISDOM, TORI Ot 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, BCR/ABL-POSITIVE, 05/01/2018 MAGDALENA WISDOM, TORI Ot I10 ESSENTIAL (PRIMARY) HYPERTENSION 05/01/2018 MAGDALENA WISDOM, TORI Ot Z79.899 OTHER SENIOR CARE (CURRENT) DRUG THERAPY 05/01/2018 TORI NICHOLS MD Ot Z85.820 PERSONAL HISTORY OF MALIGNANT MELANOMA O 05/13/2018 TORI NICHOLS MD, Ot 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 Results Test Result Range Methicillin resistant Staphylococcus aureus (MRSA) screening culture - 11:02 Methicillin resistant Staphylococcus aureus (MRSA) screening culture NEG NRG Complete blood count (CBC) with automated white blood cell (WBC) differential - 12/05/17 10:10 Blood leukocytes automated count (number/volume) 3.9 10*3/uL 4.3-11.0 Blood erythrocytes automated count (number/volume) 3.88 10*6/uL 4.35-5.85 Venous blood hemoglobin measurement (mass/volume) 11.8 g/dL 13.3-17.7 Blood hematocrit (volume fraction) 35 % 40-54 Automated erythrocyte mean corpuscular volume 91 [foz_us] 80-99 Automated erythrocyte mean corpuscular hemoglobin (mass per erythrocyte) 30 pg 25-34 Automated erythrocyte mean corpuscular hemoglobin concentration measurement ( mass/volume) 33 g/dL 32-36 Automated erythrocyte distribution width ratio 14.9 % 10.0-14.5 Automated blood platelet count (count/volume) 177 10*3/uL 130-400 Automated blood platelet mean volume measurement 9.0 [foz_us] 7.4-10.4 Automated blood neutrophils/100 leukocytes 76 % 42-75 Automated blood lymphocytes/100 leukocytes 18 % 12-44 Blood monocytes/100 leukocytes 5 % 0-12 Automated blood eosinophils/100 leukocytes 1 % 0-10 Automated blood basophils/100 leukocytes 1 % 0-10 Blood neutrophils automated count (number/volume) 3.0 10*3 1.8-7.8 Blood lymphocytes automated count (number/volume) 0.7 10*3 1.0-4.0 Blood monocytes automated count (number/volume) 0.2 10*3 0.0-1.0 Automated eosinophil count 0.0 10*3/uL 0.0-0.3 Automated blood basophil count (count/volume) 0.0 10*3/uL 0.0-0.1 Comprehensive metabolic panel - 12/05/17 10:10 Serum or plasma sodium measurement (moles/volume) 139 mmol/L 135-145 Serum or plasma potassium measurement (moles/volume) 4.0 mmol/L 3.6-5.0 Serum or plasma chloride measurement (moles/volume) 105 mmol/L 98-107 Carbon dioxide 28 mmol/L 21-32 Serum or plasma anion gap determination (moles/volume) 6 mmol/L 5-14 Serum or plasma urea nitrogen measurement (mass/volume) 18 mg/dL 7-18 Serum or plasma creatinine measurement (mass/volume) 1.13 mg/dL 0.60-1.30 Serum or plasma urea nitrogen/creatinine mass ratio 16 NRG Serum or plasma creatinine measurement with calculation of estimated glomerular filtration rate > NRG Serum or plasma glucose measurement (mass/volume) 112 mg/dL 70-105 Serum or plasma calcium measurement (mass/volume) 8.8 mg/dL 8.5-10.1 Serum or plasma total bilirubin measurement (mass/volume) 0.5 mg/dL 0.1-1.0 Serum or plasma alkaline phosphatase measurement (enzymatic activity/volume) 61 U/L 40-136 Serum or plasma aspartate aminotransferase measurement (enzymatic activity/ volume) 15 U/L 5-34 Serum or plasma alanine aminotransferase measurement (enzymatic activity/volume ) 12 U/L 0-55 Serum or plasma protein measurement (mass/volume) 6.7 g/dL 6.4-8.2 Serum or plasma albumin measurement (mass/volume) 4.0 g/dL 3.2-4.5 Lactate dehydrogenase 1 [enzymatic activity/volume] in serum or plasma - 10:10 Lactate dehydrogenase 1 [enzymatic activity/volume] in serum or plasma 187 U/L 125-220 Encounters ACCT No. Visit Date/Time Discharge Status Pt. Type Provider Facility Loc./Unit Complaint [id number] 05/13/2018 05:23:00 05/13/2018 11:12:00 DIS Outpatient RICHELLE NIXON MD [facility] [address] PREOP VENTRAL HERNIA [id number] 04/29/2018 01:05:00 04/29/2018 23:59:59 CLS Preadmit TORI NICHOLS MD [facility] [address] ONC [id number] 04/18/2018 08:29:00 04/28/2018 00:01:00 DIS Outpatient TORI NICHOLS MD [facility] [address] ONC [id number] 01/31/2018 08:24:00 01/31/2018 23:59:59 CLS Outpatient TORI NICHOLS MD [facility] [address] ONC [id number] 11/30/2017 09:22:00 12/04/2017 00:01:00 DIS Outpatient TORI NICHOLS MD [facility] [address] ONC [id number] 05/30/2017 10:35:00 05/30/2017 15:45:00 DIS Outpatient RICHELLE NIXON MD [facility] MULTIPLE LESIONS [id number] 05/25/2017 06:30:00 05/25/2017 08:42:00 DIS Outpatient RICHELLE NIXON MD [facility] [address] PREOP MULTIPLE LESIONS [id number] 05/29/2016 07:52:00 05/29/2016 23:59:59 CLS Outpatient OSITO WHITLEY DO F [facility] [address] RAD TMM LT KNEE [id number] 04/28/2016 11:20:00 04/28/2016 23:59:59 CLS Outpatient ISABELA BUSBY APRN [facility] [address] QUICK [id number] 09/20/2015 10:28:00 09/20/2015 23:59:59 CLS Outpatient CHUCK GARDINER MD [facility] [address] RAD COUGH,FEVER [id number] 05/15/2018 08:00:00 PEN Preadmit RICHELLE NIXON MD [facility] VENTRAL HERNIA
[2018-05-15 11:40] VITALS: BP 141/88
[2018-05-15] MEDS ORDERED: ceFAZolin 2 GM/50 ML PRE-MIX IVPB IV ONE (11:45)
[2018-05-15 11:50] LABS: BASOPHILS % (AUTO) 1 % (0-10); EOSINOPHILS # (AUTO) 0.1 10^3/uL (0.0-0.3); EOSINOPHILS % (AUTO) 1 % (0-10); HEMATOCRIT 37 % (40-54); LYMPHOCYTES % (AUTO) 19 % (12-44); MEAN CORPUSCULAR HEMOGLOBIN 33 PG (25-34); MEAN CORPUSCULAR HGB CONC 38 G/DL (32-36); MEAN CORPUSCULAR VOLUME 87 FL (80-99); MEAN PLATELET VOLUME 8.7 FL (7.4-10.4); MONOCYTES # (AUTO) 0.3 X 10^3 (0.0-1.0); MONOCYTES % (AUTO) 6 % (0-12); NEUTROPHILS # (AUTO) 3.8 X 10^3 (1.8-7.8); NEUTROPHILS % (AUTO) 72 % (42-75); PLATELET COUNT 162 10^3/uL (130-400); RED BLOOD COUNT 4.25 10^6/uL (4.35-5.85); WHITE BLOOD COUNT 5.3 10^3/uL (4.3-11.0)
[2018-05-15] MEDS ORDERED: PREGABALIN 75 MG (LYRICA) CAP PO ONE (12:00)
[2018-05-15] MEDS ORDERED: oxyCODONE ER 10 MG (OxyCONTIN CR) TAB PO ONE (12:00)
[2018-05-15] MEDS ORDERED: KETOROLAC 30 MG/ML VIAL IV SCH (12:00)
[2018-05-15] MEDS ORDERED: morphine INJ 10 MG/ML 1ML (SYR OR VIAL) IV PRN (12:00)
[2018-05-15] MEDS ORDERED: CELECOXIB 100 MG (CeleBREX) CAP PO ONE (12:00)
[2018-05-15] MEDS ORDERED: ACETAMINOPHEN 500 MG TAB (TYLENOL) PO ONE (12:00)
[2018-05-15] MEDS ORDERED: ceFAZolin 2 GM IV Premixed 50 ML IV ONE (12:00)
[2018-05-15] MEDS: LACTATED RINGERS 1,000 ML IV PRN ×2 (12:17→15:08)
[2018-05-15] MEDS ORDERED: FAMOTIDINE 20MG/2ML IV (PEPCID) ONE (12:31)
[2018-05-15] MEDS ORDERED: FAMOTIDINE 20MG/2ML IV (PEPCID) IV ONE (12:45)
[2018-05-15] MEDS ORDERED: BUP/EPI 0.5% 1:200,000 (SENSORCAINE) 30 ML VIAL ONE (14:01)
[2018-05-15] MEDS ORDERED: MIDAZOLAM 2 MG/2 ML (VERSED) VIAL ONE (14:23)
[2018-05-15] MEDS ORDERED: KETAMINE HCL 100 MG/ML 5 ML VIAL ONE (14:27)
[2018-05-15] MEDS ORDERED: fentaNYL INJECTION 100 MCG/2 ML AMP ONE (14:41)
[2018-05-15] MEDS ORDERED: DEXAMETHASONE 10 MG/ML (DECADRON) 1 ML VIAL ONE (15:18)
[2018-05-15] MEDS ORDERED: BUPIVACAINE 0.5% 30 ML (SENSORCAINE) VIAL ONE (15:18)
[2018-05-15] MEDS ORDERED: LIDOCAINE PF 0.5% 50 ML (XYLOCAINE) VIAL ONE (15:18)
[2018-05-15] MEDS ORDERED: SEVOFLURANE (ULTANE) 15 ML INHAL SOLN ONE ×7 (15:18→16:34)
[2018-05-15] MEDS ORDERED: proPOfol 200 MG/20 ML (DIPRIVAN) VIAL IV ONE ×2 (15:18→15:35)
[2018-05-15] MEDS ORDERED: ROCURONIUM 10 MG/ML 5 ML SYRINGE IV ONE (15:18)
[2018-05-15] MEDS ORDERED: ONDANSETRON 4 MG/2 ML (SDV) Z0FRAN ONE (15:18)
[2018-05-15] MEDS ORDERED: NEOSTIGMINE 1 MG/ML 5 ML SYRINGE ONE (15:51)
[2018-05-15] MEDS ORDERED: GLYCOPYRROLATE 0.2 MG/ML (ROBINUL) 2 ML VIAL ONE (15:51)
--- NOTE | 2018-05-15 16:05 | Progress Note-Pre Operative ---
Pre-Operative Progress Note H&P Reviewed The H&P was reviewed, patient examined and no changes noted. Date Seen by Provider: Apr 18, 2018 Time Seen by Provider: 11:20 Date H&P Reviewed: May 15, 2018 Time H&P Reviewed: 13:00 Pre-Operative Diagnosis: Ventral hernia RICHELLE NIXON MD May 15, 2018 16:05
[2018-05-15] MEDS ORDERED: ACHD5005 PO (16:10)
--- NOTE | 2018-05-15 16:10 | Operative Report ---
Operative Report Date of Procedure/Surgery May 15, 2018 Surgeon (s) RICHELLE NIXON MD Director Of Brand Marketing (s): Joao Spring (Med Student III) Post-Operative Diagnosis Same Procedure Performed Robotic assisted repair with mesh Description of Procedure Anesthesia Type: General Estimated blood loss (mL): Minimal Specimen(s) collected/removed None Description of the Procedure Indication for the procedure: This gentleman presented with a primary ventral hernia in relation to his umbilicus. He was offered repair using minimally invasive technique robotic assistance and mesh reinforcement. Informed consent was obtained after reviewing the operative details and complications of wound infection, infection of the mesh and a low incidence of recurrence. Description of the procedure: He was placed supine on the operating table and general anesthesia induced. A gram of Ancef was administered intravenously as prophylaxis against wound infection. Sequential compression devices were placed around his legs, to minimize the risk of venous thrombosis. Abdomen was prepared and draped in the usual sterile manner. The right side of his body was lifted on a roll to facilitate triangulation of the robotic system. Pneumoperitoneum was established using a Veress needle introduced over the right subcostal margin, along the midclavicular line. Intra-abdominal pressure was maintained at 15 mmHg, using carbon dioxide insufflation. A 12 mm trocar was placed and anatomy visualized using the high definition, 3- dimensional laparoscope, associated with [employer]Sky system. The defect was easily identified, measuring about 2 cm in diameter. Under direct view, I placed another 12 mm trocar over the right side of the abdomen, along the anterior axillary line, followed by an 8 mm trocar over the right lower quadrant. The robotic system was then docked in place. Extra-peritoneal fat contained within the hernia was excised using hook cautery and the defect delineated better. It was approximated using 0V LOC nonabsorbable suture with robotic assistance. Repair was reinforced further with a polypropylene mesh measuring 11.4 cm in diameter, attached to a self- retaining balloon system. The edges of the mesh were secured using 20V LOC sutures robotic assistance the balloon was removed at the end of the operation. The fascia over each of the incisions was closed using #1 Vicryl. Skin incisions were closed using 4-0 Vicryl, in a subcuticular fashion. 0.5 percent Marcaine with epinephrine was infiltrated along the incisions, both preemptively and at the conclusion of the operation. He tolerated the procedure well, was extubated in the operating room and taken to the recovery room in a stable condition. Findings of the Procedure see op report Allergies and Home Medications Allergies Coded Allergies: nisoldipine (Unverified Allergy, Intermediate, INCREASED HR AND RED SKIN , 05/13/18) Home Medications Amlodipine Besylate 10 Mg Tablet, 10 MG PO DAILY, (Reported) Benazepril HCl 40 Mg Tab, 40 MG PO DAILY, (Reported) Doxazosin Mesylate 4 Mg Tablet, 4 MG PO DAILY, (Reported) Hydrocodone Bit/Acetaminophen 1 Each Tablet, 1-2 TAB PO 4-6HR PRN for PAIN Prescribed by: RICHELLE NIXON on 05/30/17 1359 Imatinib Mesylate 100 Mg Tablet, 200 MG PO DAILY, (Reported) Nebivolol HCl 5 Mg Tablet, 5 MG PO DAILY, (Reported) Tamsulosin HCl 0.4 Mg Cap.er.24h, 0.4 MG PO DAILY, (Reported) Patient Home Medication List Home Medication List Reviewed: Yes RICHELLE NIXON MD May 15, 2018 16:10
--- NOTE | 2018-05-15 16:11 | Discharge Inst-Simple/Standard ---
Discharge Inst-Standard Discharge Medications New, Converted or Re-Newed RX: RX on Chart Patient Instructions/Follow Up Plan of Care/Instructions/FU: Band-Aids off in 48 hours. Follow-up in 4 weeks Activity as Tolerated: No Goal: No lifting over 10 pounds Discharge Diet: No Restrictions RICHELLE NIXON MD May 15, 2018 16:11
[2018-05-15] MEDS ORDERED: ONDANSETRON 4 MG/2 ML (SDV) Z0FRAN IVP PRN (16:15)
[2018-05-15] MEDS ORDERED: KETOROLAC 30 MG/ML VIAL IVP ONE (16:15)
[2018-05-15] MEDS ORDERED: MEPERIDINE (DEMEROL) INJ 50 MG/ML IVP ONE (16:15)
[2018-05-15] MEDS: morphine INJ 10 MG/ML 1ML (SYR OR VIAL) IVP ONE (16:44)
[2018-05-15] MEDS ORDERED: HYDROcodone/APAP 5 MG/325 MG (LORTAB) TAB ONE (17:16)
[2018-05-15 17:20] VITALS: BP 164/93
[2018-05-15] MEDS ORDERED: HYDROcodone/APAP 5 MG/325 MG (LORTAB) TAB PO PRN (17:30)
[2018-05-15 17:50] VITALS: BP 150/78
[2018-05-15 18:20] VITALS: BP 160/88
[2018-05-15] MEDS ORDERED: ONDANSETRON 4 MG/2 ML (SDV) Z0FRAN IVP ONE (18:45)
== END 2018-05-15 18:50 | disposition home or self-care (01) ==
LOC: SDC 11:15
PROVIDERS: ATTEND Surgery
DX: K43.9 Ventral hernia without obstruction or gangrene (principal); I10 Essential (primary) hypertension; K21.9 Gastro-esophageal reflux disease without esophagitis; E66.9 Obesity, unspecified; Z68.31 Body mass index [BMI] 31.0-31.9, adult; Z79.899 Other long term (current) drug therapy
CPT/HCPCS: 36415; 85025; 87081

== ENCOUNTER 2018-08-29 11:23 | Outpatient (RCR) | payer BC ==
[2018-06-06 08:38] LABS: BASOPHILS % (AUTO) 0 % (0-10); EOSINOPHILS # (AUTO) 0.3 10^3/uL (0.0-0.3); EOSINOPHILS % (AUTO) 5 % (0-10); HEMATOCRIT 36 % (40-54); HEMOGLOBIN 12.6 G/DL (13.3-17.7); LYMPHOCYTES # (AUTO) 1.2 X 10^3 (1.0-4.0); LYMPHOCYTES % (AUTO) 20 % (12-44); MEAN CORPUSCULAR HEMOGLOBIN 32 PG (25-34); MEAN CORPUSCULAR HGB CONC 35 G/DL (32-36); MEAN CORPUSCULAR VOLUME 89 FL (80-99); MEAN PLATELET VOLUME 8.5 FL (7.4-10.4); MONOCYTES # (AUTO) 0.4 X 10^3 (0.0-1.0); MONOCYTES % (AUTO) 6 % (0-12); NEUTROPHILS % (AUTO) 68 % (42-75); PLATELET COUNT 219 10^3/uL (130-400); RED CELL DISTRIBUTION WIDTH 12.6 % (10.0-14.5); WHITE BLOOD COUNT 5.8 10^3/uL (4.3-11.0)
[2018-06-28 09:55] LABS: BASOPHILS % (AUTO) 0 % (0-10); EOSINOPHILS # (AUTO) 0.1 10^3/uL (0.0-0.3); EOSINOPHILS % (AUTO) 2 % (0-10); HEMATOCRIT 37 % (40-54); LYMPHOCYTES # (AUTO) 1.2 X 10^3 (1.0-4.0); LYMPHOCYTES % (AUTO) 16 % (12-44); MEAN CORPUSCULAR HEMOGLOBIN 32 PG (25-34); MEAN CORPUSCULAR HGB CONC 36 G/DL (32-36); MEAN CORPUSCULAR VOLUME 89 FL (80-99); MEAN PLATELET VOLUME 8.9 FL (7.4-10.4); MONOCYTES # (AUTO) 0.3 X 10^3 (0.0-1.0); MONOCYTES % (AUTO) 5 % (0-12); NEUTROPHILS # (AUTO) 5.5 X 10^3 (1.8-7.8); NEUTROPHILS % (AUTO) 77 % (42-75); PLATELET COUNT 168 10^3/uL (130-400); RED CELL DISTRIBUTION WIDTH 13.4 % (10.0-14.5); WHITE BLOOD COUNT 7.1 10^3/uL (4.3-11.0)
[2018-06-28 10:20] LABS: ALANINE AMINOTRANSFERASE 18 U/L (0-55); ALBUMIN 3.9 GM/DL (3.2-4.5); ALKALINE PHOSPHATASE 69 U/L (40-136); BILIRUBIN,TOTAL 0.6 MG/DL (0.1-1.0); BUN/CREATININE RATIO 17; CALCIUM 8.9 MG/DL (8.5-10.1); CARBON DIOXIDE 25 MMOL/L (21-32); CHLORIDE 104 MMOL/L (98-107); CREATININE SERUM 0.93 MG/DL (0.60-1.30); GFR ESTIMATED > 60; GLUCOSE 126 MG/DL (70-105); POTASSIUM 3.9 MMOL/L (3.6-5.0); SODIUM 138 MMOL/L (135-145); TOTAL PROTEIN 6.7 GM/DL (6.4-8.2)
[2018-07-04 09:13] LABS: BILIRUBIN,URINE NEGATIVE (NEGATIVE); CLARITY,URINE CLEAR; COLOR,URINE YELLOW; GLUCOSE, URINE (UA) NEGATIVE (NEGATIVE); KETONES,URINE NEGATIVE (NEGATIVE); LEUKOCYTE ESTERASE ,URINE 3+ (NEGATIVE); NITRITE,URINE NEGATIVE (NEGATIVE); PH,URINE 6.5 (5-9); PROTEIN,URINE 3+ (NEGATIVE); UROBILINOGEN,URINE 1 MG/DL (NORMAL)
[2018-07-04 09:26] LABS: RBC,URINE 0-2 /HPF; WBC,URINE 25-50 /HPF
[2018-07-04 09:27] LABS: BACTERIA,URINE TRACE /HPF
[2018-08-01 09:29] LABS: BASOPHILS % (AUTO) 0 % (0-10); EOSINOPHILS # (AUTO) 0.1 10^3/uL (0.0-0.3); EOSINOPHILS % (AUTO) 3 % (0-10); HEMATOCRIT 39 % (40-54); HEMOGLOBIN 13.6 G/DL (13.3-17.7); LYMPHOCYTES # (AUTO) 1.1 X 10^3 (1.0-4.0); LYMPHOCYTES % (AUTO) 23 % (12-44); MEAN CORPUSCULAR HEMOGLOBIN 31 PG (25-34); MEAN CORPUSCULAR HGB CONC 35 G/DL (32-36); MEAN CORPUSCULAR VOLUME 89 FL (80-99); MEAN PLATELET VOLUME 9.1 FL (7.4-10.4); MONOCYTES # (AUTO) 0.2 X 10^3 (0.0-1.0); MONOCYTES % (AUTO) 5 % (0-12); NEUTROPHILS # (AUTO) 3.3 X 10^3 (1.8-7.8); NEUTROPHILS % (AUTO) 69 % (42-75); PLATELET COUNT 151 10^3/uL (130-400); RED CELL DISTRIBUTION WIDTH 13.3 % (10.0-14.5); WHITE BLOOD COUNT 4.7 10^3/uL (4.3-11.0)
[~2018-08-29 11:23] MED LIST changes: -AMLO10TA6 PO; +AMLO10TA7 PO; -AMLO5TAB7 PO; +AMLO5TAB9 PO
[2018-08-29 11:40] LABS: BASOPHILS % (AUTO) 1 % (0-10); EOSINOPHILS # (AUTO) 0.1 10^3/uL (0.0-0.3); EOSINOPHILS % (AUTO) 2 % (0-10); HEMATOCRIT 38 % (40-54); HEMOGLOBIN 13.5 G/DL (13.3-17.7); LYMPHOCYTES # (AUTO) 1.4 X 10^3 (1.0-4.0); LYMPHOCYTES % (AUTO) 24 % (12-44); MEAN CORPUSCULAR HEMOGLOBIN 31 PG (25-34); MEAN CORPUSCULAR HGB CONC 35 G/DL (32-36); MEAN CORPUSCULAR VOLUME 87 FL (80-99); MEAN PLATELET VOLUME 8.9 FL (7.4-10.4); MONOCYTES # (AUTO) 0.4 X 10^3 (0.0-1.0); MONOCYTES % (AUTO) 6 % (0-12); NEUTROPHILS # (AUTO) 3.9 X 10^3 (1.8-7.8); NEUTROPHILS % (AUTO) 67 % (42-75); PLATELET COUNT 161 10^3/uL (130-400); RED CELL DISTRIBUTION WIDTH 13.3 % (10.0-14.5); WHITE BLOOD COUNT 5.9 10^3/uL (4.3-11.0)
== END 2018-09-04 | disposition home or self-care (01) ==
LOC: ONC 11:23
PROVIDERS: ATTEND Internal Medicine Hematology & Oncology
DX: C92.10 Chronic myeloid leukemia, BCR/ABL-positive, not having achieved remission (principal); Z85.820 Personal history of malignant melanoma of skin; I10 Essential (primary) hypertension; Z79.899 Other long term (current) drug therapy
CPT/HCPCS: 36415; 80053; 81000; 81206; 85025; 87088; 99213

== ENCOUNTER 2018-12-16 08:13 | Outpatient (RCR) | payer BC ==
[2018-09-18 11:02] LABS: BASOPHILS % (AUTO) 1 % (0-10); EOSINOPHILS # (AUTO) 0.1 10^3/uL (0.0-0.3); EOSINOPHILS % (AUTO) 2 % (0-10); HEMATOCRIT 40 % (40-54); LYMPHOCYTES # (AUTO) 1.4 X 10^3 (1.0-4.0); LYMPHOCYTES % (AUTO) 23 % (12-44); MEAN CORPUSCULAR HEMOGLOBIN 31 PG (25-34); MEAN CORPUSCULAR HGB CONC 35 G/DL (32-36); MEAN CORPUSCULAR VOLUME 87 FL (80-99); MEAN PLATELET VOLUME 8.8 FL (7.4-10.4); MONOCYTES # (AUTO) 0.3 X 10^3 (0.0-1.0); MONOCYTES % (AUTO) 4 % (0-12); NEUTROPHILS # (AUTO) 4.2 X 10^3 (1.8-7.8); NEUTROPHILS % (AUTO) 70 % (42-75); PLATELET COUNT 168 10^3/uL (130-400); RED CELL DISTRIBUTION WIDTH 13.3 % (10.0-14.5)
[2018-09-18 11:25] LABS: ALANINE AMINOTRANSFERASE 23 U/L (0-55); ALBUMIN 4.1 GM/DL (3.2-4.5); ALKALINE PHOSPHATASE 66 U/L (40-136); BILIRUBIN,TOTAL 0.6 MG/DL (0.1-1.0); BUN/CREATININE RATIO 15; CALCIUM 8.8 MG/DL (8.5-10.1); CARBON DIOXIDE 28 MMOL/L (21-32); CHLORIDE 102 MMOL/L (98-107); GFR ESTIMATED > 60; GLUCOSE 125 MG/DL (70-105); POTASSIUM 3.7 MMOL/L (3.6-5.0); SODIUM 136 MMOL/L (135-145); TOTAL PROTEIN 6.6 GM/DL (6.4-8.2)
[2018-12-16 08:31] LABS: BASOPHILS % (AUTO) 1 % (0-10); EOSINOPHILS # (AUTO) 0.1 10^3/uL (0.0-0.3); EOSINOPHILS % (AUTO) 2 % (0-10); HEMATOCRIT 39 % (40-54); LYMPHOCYTES % (AUTO) 19 % (12-44); MEAN CORPUSCULAR HEMOGLOBIN 31 PG (25-34); MEAN CORPUSCULAR HGB CONC 36 G/DL (32-36); MEAN CORPUSCULAR VOLUME 87 FL (80-99); MEAN PLATELET VOLUME 9.2 FL (7.4-10.4); MONOCYTES # (AUTO) 0.3 X 10^3 (0.0-1.0); MONOCYTES % (AUTO) 5 % (0-12); NEUTROPHILS # (AUTO) 4.1 X 10^3 (1.8-7.8); NEUTROPHILS % (AUTO) 74 % (42-75); PLATELET COUNT 152 10^3/uL (130-400); RED CELL DISTRIBUTION WIDTH 12.9 % (10.0-14.5); WHITE BLOOD COUNT 5.5 10^3/uL (4.3-11.0)
[2018-12-16 08:55] LABS: ALANINE AMINOTRANSFERASE 29 U/L (0-55); ALKALINE PHOSPHATASE 75 U/L (40-136); BILIRUBIN,TOTAL 0.5 MG/DL (0.1-1.0); BUN/CREATININE RATIO 14; CALCIUM 8.8 MG/DL (8.5-10.1); CARBON DIOXIDE 25 MMOL/L (21-32); CHLORIDE 104 MMOL/L (98-107); CREATININE SERUM 0.98 MG/DL (0.60-1.30); GFR ESTIMATED > 60; GLUCOSE 185 MG/DL (70-105); POTASSIUM 3.5 MMOL/L (3.6-5.0); SODIUM 140 MMOL/L (135-145); TOTAL PROTEIN 6.6 GM/DL (6.4-8.2)
== END 2018-12-17 | disposition home or self-care (01) ==
LOC: ONC 08:13
PROVIDERS: ATTEND Internal Medicine Hematology & Oncology
DX: C92.10 Chronic myeloid leukemia, BCR/ABL-positive, not having achieved remission (principal); Z85.820 Personal history of malignant melanoma of skin; I10 Essential (primary) hypertension; Z79.899 Other long term (current) drug therapy
CPT/HCPCS: 36415; 80053; 81206; 85025; 99213

== ENCOUNTER 2019-03-19 08:11 | Outpatient (RCR) | payer BC ==
[2019-03-19 08:45] LABS: BASOPHILS % (AUTO) 1 % (0-10); EOSINOPHILS # (AUTO) 0.1 10^3/uL (0.0-0.3); EOSINOPHILS % (AUTO) 2 % (0-10); HEMATOCRIT 40 % (40-54); HEMOGLOBIN 14.4 G/DL (13.3-17.7); LYMPHOCYTES # (AUTO) 0.9 X 10^3 (1.0-4.0); LYMPHOCYTES % (AUTO) 19 % (12-44); MEAN CORPUSCULAR HEMOGLOBIN 32 PG (25-34); MEAN CORPUSCULAR HGB CONC 36 G/DL (32-36); MEAN CORPUSCULAR VOLUME 89 FL (80-99); MEAN PLATELET VOLUME 8.9 FL (7.4-10.4); MONOCYTES # (AUTO) 0.2 X 10^3 (0.0-1.0); MONOCYTES % (AUTO) 5 % (0-12); NEUTROPHILS # (AUTO) 3.5 X 10^3 (1.8-7.8); NEUTROPHILS % (AUTO) 74 % (42-75); PLATELET COUNT 166 10^3/uL (130-400); RED CELL DISTRIBUTION WIDTH 13.3 % (10.0-14.5); WHITE BLOOD COUNT 4.8 10^3/uL (4.3-11.0)
[2019-03-19 09:14] LABS: CARBON DIOXIDE 26 MMOL/L (21-32); CHLORIDE 105 MMOL/L (98-107); POTASSIUM 3.7 MMOL/L (3.6-5.0); SODIUM 140 MMOL/L (135-145)
[2019-03-19 09:15] LABS: ALANINE AMINOTRANSFERASE 21 U/L (0-55); ALBUMIN 3.9 GM/DL (3.2-4.5); ALKALINE PHOSPHATASE 81 U/L (40-136); BILIRUBIN,TOTAL 0.6 MG/DL (0.1-1.0); BUN/CREATININE RATIO 17; CALCIUM 8.5 MG/DL (8.5-10.1); CREATININE SERUM 1.03 MG/DL (0.60-1.30); GFR ESTIMATED > 60; GLUCOSE 166 MG/DL (70-105); TOTAL PROTEIN 6.9 GM/DL (6.4-8.2)
== END 2019-03-26 | disposition home or self-care (01) ==
LOC: ONC 08:11
PROVIDERS: ATTEND Internal Medicine Hematology & Oncology
DX: C92.10 Chronic myeloid leukemia, BCR/ABL-positive, not having achieved remission (principal); Z85.820 Personal history of malignant melanoma of skin; I10 Essential (primary) hypertension; Z79.899 Other long term (current) drug therapy
CPT/HCPCS: 36415; 80053; 81206; 85025; 99213

== ENCOUNTER → 2019-03-19 | Outpatient (CLI) | payer BC ==
[2019-03-19 09:09] LABS: ALANINE AMINOTRANSFERASE 21 U/L (0-55); ALBUMIN 3.9 GM/DL (3.2-4.5); ALKALINE PHOSPHATASE 81 U/L (40-136); BILIRUBIN,TOTAL 0.6 MG/DL (0.1-1.0); BUN/CREATININE RATIO 17; CALCIUM 8.5 MG/DL (8.5-10.1); CARBON DIOXIDE 26 MMOL/L (21-32); CHLORIDE 105 MMOL/L (98-107); CHOLESTEROL 151 MG/DL (< 200); CREATININE SERUM 1.03 MG/DL (0.60-1.30); GFR ESTIMATED > 60; GLUCOSE 166 MG/DL (70-105); HDL CHOLESTEROL 48 MG/DL (40-60); POTASSIUM 3.7 MMOL/L (3.6-5.0); SODIUM 140 MMOL/L (135-145); TOTAL PROTEIN 6.9 GM/DL (6.4-8.2); TRIGLYCERIDES 55 MG/DL (<150); VLDL CHOLESTEROL 11 MG/DL (5-40)
== END ==
LOC: LAB 08:14
PROVIDERS: ATTEND Internal Medicine Cardiovascular Disease
DX: Z01.89 Encounter for other specified special examinations (principal)
CPT/HCPCS: 36415; 80053; 80061

== ENCOUNTER 2019-06-19 08:26 | Outpatient (RCR) | payer BC ==
[2019-06-10 09:03] LABS: BASOPHILS % (AUTO) 1 % (0-10); EOSINOPHILS # (AUTO) 0.1 10^3/uL (0.0-0.3); EOSINOPHILS % (AUTO) 2 % (0-10); HEMATOCRIT 39 % (40-54); HEMOGLOBIN 14.1 G/DL (13.3-17.7); LYMPHOCYTES # (AUTO) 1.2 X 10^3 (1.0-4.0); LYMPHOCYTES % (AUTO) 22 % (12-44); MEAN CORPUSCULAR HEMOGLOBIN 32 PG (25-34); MEAN CORPUSCULAR HGB CONC 36 G/DL (32-36); MEAN CORPUSCULAR VOLUME 89 FL (80-99); MEAN PLATELET VOLUME 8.9 FL (7.4-10.4); MONOCYTES # (AUTO) 0.4 X 10^3 (0.0-1.0); MONOCYTES % (AUTO) 6 % (0-12); NEUTROPHILS # (AUTO) 3.9 X 10^3 (1.8-7.8); NEUTROPHILS % (AUTO) 69 % (42-75); PLATELET COUNT 168 10^3/uL (130-400); RED CELL DISTRIBUTION WIDTH 13.3 % (10.0-14.5); WHITE BLOOD COUNT 5.7 10^3/uL (4.3-11.0)
[2019-06-10 09:26] LABS: ALANINE AMINOTRANSFERASE 21 U/L (0-55); ALBUMIN 4.1 GM/DL (3.2-4.5); ALKALINE PHOSPHATASE 69 U/L (40-136); BILIRUBIN,TOTAL 0.4 MG/DL (0.1-1.0); BUN/CREATININE RATIO 13; CALCIUM 8.8 MG/DL (8.5-10.1); CARBON DIOXIDE 28 MMOL/L (21-32); CHLORIDE 103 MMOL/L (98-107); GFR ESTIMATED > 60; GLUCOSE 156 MG/DL (70-105); POTASSIUM 3.8 MMOL/L (3.6-5.0); SODIUM 137 MMOL/L (135-145); TOTAL PROTEIN 6.5 GM/DL (6.4-8.2)
== END 2019-06-25 | disposition home or self-care (01) ==
LOC: ONC 08:26
PROVIDERS: ATTEND Internal Medicine Hematology & Oncology
DX: C92.10 Chronic myeloid leukemia, BCR/ABL-positive, not having achieved remission (principal); Z85.820 Personal history of malignant melanoma of skin; I10 Essential (primary) hypertension; Z79.899 Other long term (current) drug therapy
CPT/HCPCS: 36415; 80053; 81206; 83615; 85025; 99213

== ENCOUNTER 2019-09-18 08:35 | Outpatient (RCR) | payer MEDICARE ==
[2019-09-11 09:44] LABS: BASOPHILS % (AUTO) 1 % (0-10); EOSINOPHILS # (AUTO) 0.1 10^3/uL (0.0-0.3); EOSINOPHILS % (AUTO) 2 % (0-10); HEMATOCRIT 41 % (40-54); HEMOGLOBIN 14.5 G/DL (13.3-17.7); LYMPHOCYTES # (AUTO) 1.4 X 10^3 (1.0-4.0); LYMPHOCYTES % (AUTO) 24 % (12-44); MEAN CORPUSCULAR HEMOGLOBIN 31 PG (25-34); MEAN CORPUSCULAR HGB CONC 36 G/DL (32-36); MEAN CORPUSCULAR VOLUME 87 FL (80-99); MEAN PLATELET VOLUME 9.3 FL (7.4-10.4); MONOCYTES # (AUTO) 0.3 X 10^3 (0.0-1.0); MONOCYTES % (AUTO) 5 % (0-12); NEUTROPHILS # (AUTO) 4.1 X 10^3 (1.8-7.8); NEUTROPHILS % (AUTO) 68 % (42-75); PLATELET COUNT 168 10^3/uL (130-400); RED CELL DISTRIBUTION WIDTH 13.2 % (10.0-14.5)
[2019-09-11 10:03] LABS: ALANINE AMINOTRANSFERASE 33 U/L (0-55); ALBUMIN 4.1 GM/DL (3.2-4.5); ALKALINE PHOSPHATASE 76 U/L (40-136); BILIRUBIN,TOTAL 0.4 MG/DL (0.1-1.0); BUN/CREATININE RATIO 13; CALCIUM 8.6 MG/DL (8.5-10.1); CARBON DIOXIDE 25 MMOL/L (21-32); CHLORIDE 101 MMOL/L (98-107); CREATININE SERUM 1.04 MG/DL (0.60-1.30); GFR ESTIMATED > 60; GLUCOSE 151 MG/DL (70-105); POTASSIUM 3.6 MMOL/L (3.6-5.0); SODIUM 135 MMOL/L (135-145)
== END 2019-11-03 09:48 | disposition home or self-care (01) ==
LOC: ONC 08:35
PROVIDERS: ATTEND Internal Medicine Hematology & Oncology
DX: C92.10 Chronic myeloid leukemia, BCR/ABL-positive, not having achieved remission (principal); Z85.820 Personal history of malignant melanoma of skin; I10 Essential (primary) hypertension; Z79.899 Other long term (current) drug therapy
CPT/HCPCS: 80053; 83615; 85025; 88377; 99213

== ENCOUNTER → 2019-12-10 | Outpatient (CLI) | payer MEDICARE ==
[2019-12-10 08:55] LABS: BASOPHILS % (AUTO) 0 % (0-10); EOSINOPHILS # (AUTO) 0.1 10^3/uL (0.0-0.3); EOSINOPHILS % (AUTO) 2 % (0-10); HEMATOCRIT 40 % (40-54); HEMOGLOBIN 13.9 G/DL (13.3-17.7); LYMPHOCYTES # (AUTO) 1.1 X 10^3 (1.0-4.0); LYMPHOCYTES % (AUTO) 20 % (12-44); MEAN CORPUSCULAR HEMOGLOBIN 31 PG (25-34); MEAN CORPUSCULAR HGB CONC 35 G/DL (32-36); MEAN CORPUSCULAR VOLUME 88 FL (80-99); MEAN PLATELET VOLUME 9.4 FL (7.4-10.4); MONOCYTES # (AUTO) 0.3 X 10^3 (0.0-1.0); MONOCYTES % (AUTO) 5 % (0-12); NEUTROPHILS # (AUTO) 3.9 X 10^3 (1.8-7.8); NEUTROPHILS % (AUTO) 72 % (42-75); PLATELET COUNT 164 10^3/uL (130-400); RED CELL DISTRIBUTION WIDTH 13.8 % (10.0-14.5); WHITE BLOOD COUNT 5.4 10^3/uL (4.3-11.0)
[2019-12-10 09:12] LABS: ALANINE AMINOTRANSFERASE 22 U/L (0-55); ALBUMIN 4.1 GM/DL (3.2-4.5); ALKALINE PHOSPHATASE 68 U/L (40-136); BILIRUBIN,TOTAL 0.5 MG/DL (0.1-1.0); BUN/CREATININE RATIO 16; CALCIUM 8.6 MG/DL (8.5-10.1); CARBON DIOXIDE 26 MMOL/L (21-32); CHLORIDE 107 MMOL/L (98-107); CHOLESTEROL 146 MG/DL (< 200); GFR ESTIMATED > 60; GLUCOSE 156 MG/DL (70-105); HDL CHOLESTEROL 50 MG/DL (40-60); POTASSIUM 3.8 MMOL/L (3.6-5.0); SODIUM 141 MMOL/L (135-145); TOTAL PROTEIN 6.9 GM/DL (6.4-8.2); TRIGLYCERIDES 48 MG/DL (<150); VLDL CHOLESTEROL 10 MG/DL (5-40)
== END ==
LOC: LAB 08:37
PROVIDERS: ATTEND Family Medicine
DX: I10 Essential (primary) hypertension (principal); R73.09 Other abnormal glucose; N40.0 Benign prostatic hyperplasia without lower urinary tract symptoms
CPT/HCPCS: 36415; 80053; 80061; 83036; 84443; 85025

== ENCOUNTER 2019-12-19 08:22 | Outpatient (RCR) | payer MEDICARE ==
[2019-12-10 08:58] LABS: BASOPHILS % (AUTO) 0 % (0-10); EOSINOPHILS % (AUTO) 2 % (0-10); HEMATOCRIT 40 % (40-54); HEMOGLOBIN 13.9 G/DL (13.3-17.7); LYMPHOCYTES # (AUTO) 1.1 X 10^3 (1.0-4.0); LYMPHOCYTES % (AUTO) 20 % (12-44); MEAN CORPUSCULAR HEMOGLOBIN 31 PG (25-34); MEAN CORPUSCULAR HGB CONC 35 G/DL (32-36); MEAN CORPUSCULAR VOLUME 88 FL (80-99); MEAN PLATELET VOLUME 9.4 FL (7.4-10.4); MONOCYTES % (AUTO) 5 % (0-12); NEUTROPHILS # (AUTO) 3.9 X 10^3 (1.8-7.8); NEUTROPHILS % (AUTO) 72 % (42-75); PLATELET COUNT 164 10^3/uL (130-400); RED CELL DISTRIBUTION WIDTH 13.8 % (10.0-14.5); WHITE BLOOD COUNT 5.4 10^3/uL (4.3-11.0)
[2019-12-10 08:59] LABS: EOSINOPHILS # (AUTO) 0.1 10^3/uL (0.0-0.3); MONOCYTES # (AUTO) 0.3 X 10^3 (0.0-1.0)
[2019-12-10 09:15] LABS: ALANINE AMINOTRANSFERASE 22 U/L (0-55); ALBUMIN 4.1 GM/DL (3.2-4.5); ALKALINE PHOSPHATASE 67 U/L (40-136); BILIRUBIN,TOTAL 0.5 MG/DL (0.1-1.0); BUN/CREATININE RATIO 16; CALCIUM 8.5 MG/DL (8.5-10.1); CARBON DIOXIDE 26 MMOL/L (21-32); CHLORIDE 107 MMOL/L (98-107); GFR ESTIMATED > 60; GLUCOSE 155 MG/DL (70-105); POTASSIUM 3.8 MMOL/L (3.6-5.0); SODIUM 141 MMOL/L (135-145); TOTAL PROTEIN 6.8 GM/DL (6.4-8.2)
== END 2020-03-03 13:16 | disposition home or self-care (01) ==
LOC: ONC 08:22
PROVIDERS: ATTEND Internal Medicine Hematology & Oncology
DX: C92.10 Chronic myeloid leukemia, BCR/ABL-positive, not having achieved remission (principal); I10 Essential (primary) hypertension; Z79.899 Other long term (current) drug therapy; Z85.820 Personal history of malignant melanoma of skin
CPT/HCPCS: 80053; 81206; 83615; 85025; 99213

== ENCOUNTER 2020-03-12 07:58 | Outpatient (RCR) | payer MEDICARE ==
[2020-03-04 08:38] LABS: BASOPHILS % (AUTO) 1 % (0-10); EOSINOPHILS # (AUTO) 0.1 10^3/uL (0.0-0.3); EOSINOPHILS % (AUTO) 2 % (0-10); HEMATOCRIT 40 % (40-54); HEMOGLOBIN 14.3 G/DL (13.3-17.7); LYMPHOCYTES # (AUTO) 1.3 X 10^3 (1.0-4.0); LYMPHOCYTES % (AUTO) 21 % (12-44); MEAN CORPUSCULAR HEMOGLOBIN 32 PG (25-34); MEAN CORPUSCULAR HGB CONC 36 G/DL (32-36); MEAN CORPUSCULAR VOLUME 91 FL (80-99); MEAN PLATELET VOLUME 9.4 FL (7.4-10.4); MONOCYTES # (AUTO) 0.3 X 10^3 (0.0-1.0); MONOCYTES % (AUTO) 5 % (0-12); NEUTROPHILS # (AUTO) 4.3 X 10^3 (1.8-7.8); NEUTROPHILS % (AUTO) 72 % (42-75); PLATELET COUNT 159 10^3/uL (130-400)
[2020-03-04 08:57] LABS: ALANINE AMINOTRANSFERASE 21 U/L (0-55); ALKALINE PHOSPHATASE 79 U/L (40-136); BILIRUBIN,TOTAL 0.5 MG/DL (0.1-1.0); BUN/CREATININE RATIO 14; CALCIUM 8.7 MG/DL (8.5-10.1); CARBON DIOXIDE 24 MMOL/L (21-32); CHLORIDE 105 MMOL/L (98-107); CREATININE SERUM 1.11 MG/DL (0.60-1.30); GFR ESTIMATED > 60; GLUCOSE 150 MG/DL (70-105); POTASSIUM 3.8 MMOL/L (3.6-5.0); SODIUM 139 MMOL/L (135-145); TOTAL PROTEIN 6.6 GM/DL (6.4-8.2)
== END 2020-04-23 08:26 | disposition home or self-care (01) ==
LOC: ONC 07:58
PROVIDERS: ATTEND Internal Medicine Hematology & Oncology
DX: C92.10 Chronic myeloid leukemia, BCR/ABL-positive, not having achieved remission (principal); I10 Essential (primary) hypertension; M79.89 Other specified soft tissue disorders; R73.01 Impaired fasting glucose; L98.9 Disorder of the skin and subcutaneous tissue, unspecified; Z79.899 Other long term (current) drug therapy; Z95.5 Presence of coronary angioplasty implant and graft; Z98.890 Other specified postprocedural states; Z85.820 Personal history of malignant melanoma of skin
CPT/HCPCS: 80053; 81206; 83615; 85025; 99213

== ENCOUNTER 2020-06-11 08:56 | Outpatient (RCR) | payer MEDICARE ==
[2020-05-31 09:02] LABS: BASOPHILS % (AUTO) 1 % (0-10); EOSINOPHILS # (AUTO) 0.1 10^3/uL (0.0-0.3); EOSINOPHILS % (AUTO) 2 % (0-10); HEMATOCRIT 39 % (40-54); HEMOGLOBIN 13.6 g/dL (13.3-17.7); LYMPHOCYTES # (AUTO) 1.1 10^3/uL (1.0-4.0); LYMPHOCYTES % (AUTO) 21 % (12-44); MEAN CORPUSCULAR HEMOGLOBIN 32 pg (25-34); MEAN CORPUSCULAR HGB CONC 35 g/dL (32-36); MEAN CORPUSCULAR VOLUME 93 fL (80-99); MEAN PLATELET VOLUME 9.3 fL (9.0-12.2); MONOCYTES # (AUTO) 0.3 10^3/uL (0.0-1.0); MONOCYTES % (AUTO) 6 % (0-12); NEUTROPHILS # (AUTO) 3.5 10^3/uL (1.8-7.8); NEUTROPHILS % (AUTO) 70 % (42-75); PLATELET COUNT 154 10^3/uL (130-400)
[2020-05-31 09:18] LABS: ALANINE AMINOTRANSFERASE 25 U/L (0-55); ALBUMIN 3.8 GM/DL (3.2-4.5); ALKALINE PHOSPHATASE 61 U/L (40-136); BILIRUBIN,TOTAL 0.6 MG/DL (0.1-1.0); BUN/CREATININE RATIO 17; CALCIUM 8.4 MG/DL (8.5-10.1); CARBON DIOXIDE 26 MMOL/L (21-32); CHLORIDE 103 MMOL/L (98-107); GFR ESTIMATED > 60; GLUCOSE 154 MG/DL (70-105); SODIUM 137 MMOL/L (135-145); TOTAL PROTEIN 6.4 GM/DL (6.4-8.2)
[~2020-06-11 08:56] MED LIST changes: +AMLO-250 PO; +AMLO-251 PO; -AMLO10TA7 PO; -AMLO5TAB9 PO
== END 2020-08-27 14:34 | disposition home or self-care (01) ==
LOC: ONC 08:56
PROVIDERS: ATTEND Internal Medicine Hematology & Oncology
DX: C92.10 Chronic myeloid leukemia, BCR/ABL-positive, not having achieved remission (principal)
CPT/HCPCS: 80053; 81206; 83615; 85025; 99213

== ENCOUNTER 2020-11-19 09:14 | Outpatient (RCR) | payer MEDICARE ==
[2020-09-02 09:33] LABS: BASOPHILS % (AUTO) 1 % (0-10); EOSINOPHILS # (AUTO) 0.1 10^3/uL (0.0-0.3); EOSINOPHILS % (AUTO) 2 % (0-10); HEMATOCRIT 38 % (40-54); HEMOGLOBIN 13.3 g/dL (13.3-17.7); LYMPHOCYTES # (AUTO) 1.1 10^3/uL (1.0-4.0); LYMPHOCYTES % (AUTO) 19 % (12-44); MEAN CORPUSCULAR HEMOGLOBIN 31 pg (25-34); MEAN CORPUSCULAR HGB CONC 35 g/dL (32-36); MEAN CORPUSCULAR VOLUME 90 fL (80-99); MEAN PLATELET VOLUME 9.4 fL (9.0-12.2); MONOCYTES # (AUTO) 0.3 10^3/uL (0.0-1.0); MONOCYTES % (AUTO) 6 % (0-12); NEUTROPHILS % (AUTO) 72 % (42-75); PLATELET COUNT 150 10^3/uL (130-400); WHITE BLOOD COUNT 5.5 10^3/uL (4.3-11.0)
[2020-09-02 09:57] LABS: ALBUMIN 3.7 GM/DL (3.2-4.5); BILIRUBIN,TOTAL 0.6 MG/DL (0.1-1.0); CALCIUM 8.6 MG/DL (8.5-10.1); CREATININE SERUM 1.22 MG/DL (0.60-1.30); TOTAL PROTEIN 6.2 GM/DL (6.4-8.2)
[2020-11-19 09:26] LABS: BASOPHILS # (AUTO) 0.1 10^3/uL (0.0-0.1); BASOPHILS % (AUTO) 1 % (0-10); EOSINOPHILS # (AUTO) 0.2 10^3/uL (0.0-0.3); EOSINOPHILS % (AUTO) 3 % (0-10); HEMATOCRIT 40 % (40-54); LYMPHOCYTES # (AUTO) 1.2 10^3/uL (1.0-4.0); LYMPHOCYTES % (AUTO) 18 % (12-44); MEAN CORPUSCULAR HEMOGLOBIN 32 pg (25-34); MEAN CORPUSCULAR HGB CONC 35 g/dL (32-36); MEAN CORPUSCULAR VOLUME 91 fL (80-99); MEAN PLATELET VOLUME 9.2 fL (9.0-12.2); MONOCYTES # (AUTO) 0.4 10^3/uL (0.0-1.0); MONOCYTES % (AUTO) 5 % (0-12); NEUTROPHILS # (AUTO) 4.8 10^3/uL (1.8-7.8); NEUTROPHILS % (AUTO) 72 % (42-75); PLATELET COUNT 171 10^3/uL (130-400); WHITE BLOOD COUNT 6.7 10^3/uL (4.3-11.0)
[2020-11-19 09:55] LABS: ALANINE AMINOTRANSFERASE 24 U/L (0-55); ALBUMIN 3.9 GM/DL (3.2-4.5); ALKALINE PHOSPHATASE 77 U/L (40-136); BILIRUBIN,TOTAL 0.5 MG/DL (0.1-1.0); BUN/CREATININE RATIO 13; CALCIUM 8.4 MG/DL (8.5-10.1); CARBON DIOXIDE 25 MMOL/L (21-32); CHLORIDE 102 MMOL/L (98-107); CREATININE SERUM 1.04 MG/DL (0.60-1.30); GFR ESTIMATED > 60; GLUCOSE 147 MG/DL (70-105); POTASSIUM 3.9 MMOL/L (3.6-5.0); SODIUM 138 MMOL/L (135-145); TOTAL PROTEIN 6.5 GM/DL (6.4-8.2)
== END 2020-12-01 | disposition home or self-care (01) ==
LOC: ONC 09:14
PROVIDERS: ATTEND Internal Medicine Hematology & Oncology
DX: C92.10 Chronic myeloid leukemia, BCR/ABL-positive, not having achieved remission (principal); I10 Essential (primary) hypertension
CPT/HCPCS: 80053; 81206; 85025; 88377; 99213

== ENCOUNTER 2021-02-15 08:53 | Outpatient (RCR) | payer MEDICARE ==
[2021-02-01 08:29] LABS: BASOPHILS % (AUTO) 1 % (0-10); EOSINOPHILS # (AUTO) 0.1 10^3/uL (0.0-0.3); EOSINOPHILS % (AUTO) 2 % (0-10); HEMATOCRIT 40 % (40-54); HEMOGLOBIN 13.9 g/dL (13.3-17.7); LYMPHOCYTES # (AUTO) 1.3 10^3/uL (1.0-4.0); LYMPHOCYTES % (AUTO) 23 % (12-44); MEAN CORPUSCULAR HEMOGLOBIN 32 pg (25-34); MEAN CORPUSCULAR HGB CONC 35 g/dL (32-36); MEAN CORPUSCULAR VOLUME 92 fL (80-99); MEAN PLATELET VOLUME 9.1 fL (9.0-12.2); MONOCYTES # (AUTO) 0.3 10^3/uL (0.0-1.0); MONOCYTES % (AUTO) 6 % (0-12); NEUTROPHILS # (AUTO) 3.9 10^3/uL (1.8-7.8); NEUTROPHILS % (AUTO) 68 % (42-75); PLATELET COUNT 168 10^3/uL (130-400); WHITE BLOOD COUNT 5.7 10^3/uL (4.3-11.0)
[2021-02-01 08:50] LABS: ALBUMIN 3.7 GM/DL (3.2-4.5); BILIRUBIN,TOTAL 0.5 MG/DL (0.1-1.0); CALCIUM 9.2 MG/DL (8.5-10.1); CREATININE SERUM 1.24 MG/DL (0.60-1.30); TOTAL PROTEIN 6.3 GM/DL (6.4-8.2)
== END 2021-02-16 07:47 | disposition home or self-care (01) ==
LOC: ONC 08:53
PROVIDERS: ATTEND Internal Medicine Hematology & Oncology
DX: C92.10 Chronic myeloid leukemia, BCR/ABL-positive, not having achieved remission (principal); I10 Essential (primary) hypertension; E66.9 Obesity, unspecified; Z79.899 Other long term (current) drug therapy
CPT/HCPCS: 80053; 81206; 85025; 99213

== ENCOUNTER → 2021-05-17 | Outpatient (CLI) | payer MEDICARE | LOC: LAB 08:58 | PROVIDERS: ATTEND Family Medicine | DX: I10 Essential (primary) hypertension (principal); N40.0 Benign prostatic hyperplasia without lower urinary tract symptoms; R73.09 Other abnormal glucose ==

== ENCOUNTER 2021-07-18 08:41 | Outpatient (RCR) | payer MEDICARE ==
[2021-05-17 09:09] LABS: BASOPHILS # (AUTO) 0.1 10^3/uL (0.0-0.1); BASOPHILS % (AUTO) 1 % (0-10); EOSINOPHILS # (AUTO) 0.1 10^3/uL (0.0-0.3); EOSINOPHILS % (AUTO) 1 % (0-10); HEMATOCRIT 42 % (40-54); HEMOGLOBIN 14.5 g/dL (13.3-17.7); LYMPHOCYTES # (AUTO) 1.3 10^3/uL (1.0-4.0); LYMPHOCYTES % (AUTO) 17 % (12-44); MEAN CORPUSCULAR HEMOGLOBIN 31 pg (25-34); MEAN CORPUSCULAR HGB CONC 34 g/dL (32-36); MEAN CORPUSCULAR VOLUME 92 fL (80-99); MEAN PLATELET VOLUME 9.1 fL (9.0-12.2); MONOCYTES # (AUTO) 0.4 10^3/uL (0.0-1.0); MONOCYTES % (AUTO) 5 % (0-12); NEUTROPHILS # (AUTO) 5.8 10^3/uL (1.8-7.8); NEUTROPHILS % (AUTO) 74 % (42-75); PLATELET COUNT 172 10^3/uL (130-400); WHITE BLOOD COUNT 7.7 10^3/uL (4.3-11.0)
[2021-06-21 09:07] LABS: BASOPHILS # (AUTO) 0.1 10^3/uL (0.0-0.1); BASOPHILS % (AUTO) 1 % (0-10); EOSINOPHILS # (AUTO) 0.1 10^3/uL (0.0-0.3); EOSINOPHILS % (AUTO) 1 % (0-10); HEMATOCRIT 42 % (40-54); HEMOGLOBIN 14.7 g/dL (13.3-17.7); LYMPHOCYTES # (AUTO) 1.4 10^3/uL (1.0-4.0); LYMPHOCYTES % (AUTO) 21 % (12-44); MEAN CORPUSCULAR HEMOGLOBIN 32 pg (25-34); MEAN CORPUSCULAR HGB CONC 35 g/dL (32-36); MEAN CORPUSCULAR VOLUME 91 fL (80-99); MEAN PLATELET VOLUME 8.9 fL (9.0-12.2); MONOCYTES # (AUTO) 0.4 10^3/uL (0.0-1.0); MONOCYTES % (AUTO) 6 % (0-12); NEUTROPHILS # (AUTO) 4.7 10^3/uL (1.8-7.8); NEUTROPHILS % (AUTO) 70 % (42-75); PLATELET COUNT 177 10^3/uL (130-400); WHITE BLOOD COUNT 6.7 10^3/uL (4.3-11.0)
[2021-06-21 09:22] LABS: ALBUMIN 3.9 GM/DL (3.2-4.5); BILIRUBIN,TOTAL 0.5 MG/DL (0.1-1.0); CREATININE SERUM 1.31 MG/DL (0.60-1.30); POTASSIUM 3.8 MMOL/L (3.6-5.0); TOTAL PROTEIN 6.7 GM/DL (6.4-8.2)
[~2021-07-18 08:41] MED LIST changes: -BENA40TA5 PO; +BENA40TA84 PO
[2021-07-18 10:46] LABS: BASOPHILS # (AUTO) 0.1 10^3/uL (0.0-0.1); BASOPHILS % (AUTO) 1 % (0-10); EOSINOPHILS # (AUTO) 0.1 10^3/uL (0.0-0.3); EOSINOPHILS % (AUTO) 2 % (0-10); HEMATOCRIT 44 % (40-54); HEMOGLOBIN 15.4 g/dL (13.3-17.7); LYMPHOCYTES # (AUTO) 1.1 10^3/uL (1.0-4.0); LYMPHOCYTES % (AUTO) 18 % (12-44); MEAN CORPUSCULAR HEMOGLOBIN 32 pg (25-34); MEAN CORPUSCULAR HGB CONC 35 g/dL (32-36); MEAN CORPUSCULAR VOLUME 91 fL (80-99); MEAN PLATELET VOLUME 9.4 fL (9.0-12.2); MONOCYTES # (AUTO) 0.3 10^3/uL (0.0-1.0); MONOCYTES % (AUTO) 5 % (0-12); NEUTROPHILS # (AUTO) 4.3 10^3/uL (1.8-7.8); NEUTROPHILS % (AUTO) 73 % (42-75); PLATELET COUNT 177 10^3/uL (130-400); WHITE BLOOD COUNT 5.9 10^3/uL (4.3-11.0)
[2021-07-18 10:56] LABS: ALBUMIN 4.1 GM/DL (3.2-4.5); BILIRUBIN,TOTAL 0.6 MG/DL (0.1-1.0); CALCIUM 9.1 MG/DL (8.5-10.1); CREATININE SERUM 1.32 MG/DL (0.60-1.30); POTASSIUM 3.7 MMOL/L (3.6-5.0); TOTAL PROTEIN 7.4 GM/DL (6.4-8.2)
== END 2021-07-25 15:04 | disposition home or self-care (01) ==
LOC: ONC 08:41
PROVIDERS: ATTEND Internal Medicine Hematology & Oncology
DX: C92.10 Chronic myeloid leukemia, BCR/ABL-positive, not having achieved remission (principal); I11.9 Hypertensive heart disease without heart failure; I44.4 Left anterior fascicular block; R25.1 Tremor, unspecified; R47.9 Unspecified speech disturbances
CPT/HCPCS: 80053; 81206; 83615; 85025

== ENCOUNTER 2022-07-11 05:35 | Outpatient (CLI) | payer MEDICARE ==
[~2022-07-11] VITALS: Ht 182.9 cm; Wt 114.9 kg
[2022-07-12] MEDS ORDERED: IMAT400T7 PO (11:17)
[2022-07-12] MEDS ORDERED: TADA2.5T3 PO (11:17)
[2022-07-12] MEDS ORDERED: PROP120C3 PO (11:17)
== END 2022-07-12 11:21 ==
LOC: PREOP 05:35
PROVIDERS: ATTEND Surgery
DX: Z01.818 Encounter for other preprocedural examination (principal); R19.4 Change in bowel habit; R13.10 Dysphagia, unspecified

== ENCOUNTER 2022-07-18 11:52 | Day surgery (SDC) | payer MEDICARE ==
[~2022-07-18] VITALS: Ht 182.9 cm; Wt 114.9 kg
[2022-07-18] VITALS (7 sets, daily range): BP systolic 85–145; BP diastolic 58–99
[~2022-07-18 11:52] MED LIST changes: +IMAT400T7 PO; +PROP120C3 PO; +TADA2.5T3 PO
[2022-07-18] MEDS ORDERED: LACTATED RINGERS 1,000 ML IV STA (11:54)
[2022-07-18] MEDS ORDERED: HURRICAINE EXT TUBE (BENZOCAINE) XX PRN (12:00)
[2022-07-18] MEDS ORDERED: HURRICAINE EXT TUBE (BENZOCAINE) ONE (12:12)
[2022-07-18] MEDS ORDERED: LACTATED RINGERS 1,000 ML IV ONE (12:12)
[2022-07-18] MEDS ORDERED: MIDAZOLAM 2 MG/2 ML (VERSED) VIAL ONE (13:04)
[2022-07-18] MEDS ORDERED: PROPOFOL INJECTION 50 ML IV ONE ×2 (13:04→13:28)
--- NOTE | 2022-07-18 13:56 | Discharge Inst-Simple/Standard ---
Discharge Inst-Standard Patient Instructions/Follow Up Plan of Care/Instructions/FU: Please follow-up with Dr. Khan in 2 weeks in outpatient clinic and schedule follow-up colonoscopy in 3-6 months. Activity as Tolerated: Yes Discharge Diet: Regular Diet LOUIS KHAN DO Jul 18, 2022 13:56
--- NOTE | 2022-07-18 14:34 | Anesthesia-General Post-Op ---
MAC Patient Condition Mental Status/LOC: Same as Preop Cardiovascular: Satisfactory Nausea/Vomiting: Absent Respiratory: Satisfactory Pain: Controlled Complications: Absent Post Op Complications Complications None Follow Up Care/Instructions Patient Instructions None needed. Anesthesiology Discharge Order Discharge Order Patient is doing well, no complaints, stable vital signs, no apparent adverse anesthesia problems. No complications reported per nursing. RAJINDER CISNEROS CRNA Jul 18, 2022 14:34
--- NOTE | 2022-07-19 00:59 | OPERATIVE REPORT ---
DATE OF SERVICE: 07/18/2022 PREOPERATIVE DIAGNOSES: GERD and change in bowel habits. POSTOPERATIVE DIAGNOSES: Slight gastritis and colon polyps. PROCEDURE: EGD with biopsies, colonoscopy with hot biopsy polypectomy x5 with snare polypectomy x1 with placement of Resolution clip. SURGEON: Louis Khan DO ANESTHESIA: Per SMALL STOCK FACER. COMPLICATIONS: None. INDICATIONS: The patient is a 66-year-old male with GERD and change in bowel habits. He understands risks and benefits of the procedure and wished to proceed. Consent was signed in the chart. DESCRIPTION OF PROCEDURE: The patient was taken to the endoscopy suite, placed in the left lower prone position. Timeout was performed. Scope was inserted in to the mouth and esophagus, stomach and the duodenum without difficulty. No polyps, masses or ulcerations within the duodenum. Scope was retracted back in the stomach and was further insufflated. Slight evidence of gastritis. Biopsy of antrum was obtained. No polyps, masses or ulcerations. Scope was retroflexed. There was no other pathology. Scope was returned to its normal position and slowly withdrawn in the distal esophagus. Biopsy of GE junction was obtained. Scope was then slowly retracted back until completely removed, noting no other pathology. Digital rectal exam was performed. No palpable polyps, masses or ulceration. Scope was inserted in the rectum and advanced all the way to the cecum with minimal difficulty. Prep was adequate. In the cecum, 2 polyps were present, which hot biopsy polypectomy was performed. Scope was then easily retracted back. No polyps, masses, or ulcerations. In the ascending colon and transverse colon, 2 polyps, one flat larger polyp was present, which both polyps had hot biopsy polypectomies performed and fulgurated. Scope was then continuously directed back to the remainder of the transverse colon. No other polyps, masses or ulcerations. Along the descending colon and sigmoid colon, 1 polyp was present, which hot biopsy polypectomy was performed. The scope was then continuously directed back to the rectum where a large polyp was present, which snare polypectomy was performed. This was suctioned and removed. Scope was reinserted and due to the mucosal defect, a Resolution clip was placed. Scope was then inserted and retracted multiple times. No other pathology. Scope was slowly retracted until completely removed. The patient tolerated the procedure well without complications, taken to recovery room in stable condition. RECOMMENDATIONS: Recommended repeat colonoscopy in 3-6 months to reevaluate to make sure they have been eradicated. Any problems before that be seen at that time. Follow up in 2 weeks. Discussed pathology results. Further recommendations pending. Job ID: [id number] DocumentID: [id number] Dictated Date: 07/18/2022 14:05:11 Clinical Staff Pharmacist Date: 07/19/2022 00:57:00 Dictated By: LOUIS KHAN DO
== END 2022-07-18 14:55 | disposition home or self-care (01) ==
LOC: ENDO 11:52
PROVIDERS: ATTEND Surgery
DX: D12.0 Benign neoplasm of cecum (principal); D12.3 Benign neoplasm of transverse colon; D12.5 Benign neoplasm of sigmoid colon; D12.8 Benign neoplasm of rectum; K29.70 Gastritis, unspecified, without bleeding; K21.9 Gastro-esophageal reflux disease without esophagitis; E66.9 Obesity, unspecified; Z68.34 Body mass index [BMI] 34.0-34.9, adult

== ENCOUNTER 2023-01-31 05:33 | Outpatient (CLI) | payer MEDICARE ==
[~2023-01-31] VITALS: Ht 182.8 cm; Wt 114.8 kg
[~2023-01-31 05:33] MED LIST changes: -REGADENOSON 0.4 MG/5 ML SYR (LEXISCAN) IV ONE
== END 2023-02-01 09:51 | disposition home or self-care (01) ==
LOC: PREOP 05:33
PROVIDERS: ATTEND Surgery
DX: Z01.818 Encounter for other preprocedural examination (principal)

== ENCOUNTER → 2023-01-31 | Outpatient (CLI) | payer MEDICARE ==
[~2023-01-31] MED LIST changes: -DOXA4TAB PO; +DOXA4TAB96 PO; +REGADENOSON 0.4 MG/5 ML SYR (LEXISCAN) IV ONE
--- NOTE | 2023-01-31 20:55 | STRESS TEST ---
DATE OF SERVICE: 01/31/2023 RESTING AND POST REGADENOSON TECHNETIUM-99M TETROFOSMIN SPECT CT IMAGING ORDERING PHYSICIAN: Miracle Dillard APRN. PRIMARY PHYSICIAN: Dr. Estevez. CLINICAL DIAGNOSIS: Chest discomfort. Baseline images were carried out after injection of 10.62 mCi of technetium-99m tetrofosmin. This was followed by 0.4 mg regadenoson and 31.3 mCi of technetium-99m tetrofosmin for stress imaging. The electrocardiogram showed atrial fibrillation at baseline. It did not change significantly with regadenoson infusion. The ventricular rate remained controlled. Review of images at rest and following stress does not indicate any significant perfusion defects consistent with myocardial ischemia or infarction. Gated images show normal global left ventricular systolic function with normal regional wall motion. Left ventricular ejection fraction is calculated to be 55%. CONCLUSIONS: 1. No evidence of significant myocardial ischemia or infarction on this study. 2. Normal regional wall motion. 3. Normal global left ventricular systolic function with a calculated ejection fraction 55%. 4. Atrial fibrillation throughout the study. Job ID: [id number] DocumentID: [id number] Dictated Date: 01/31/2023 17:37:57 Accelerator Operator Date: 01/31/2023 20:53:00 Dictated By: JAYA TODD MD; STACIA; FACP; FACC;
== END ==
LOC: CARD 11:01
PROVIDERS: ATTEND Nurse Practitioner Family
DX: R06.09 Other forms of dyspnea (principal); R07.9 Chest pain, unspecified
CPT/HCPCS: 78452; 93017; A9502

== ENCOUNTER → 2023-01-31 | Outpatient (CLI) | payer MEDICARE ==
[2023-01-31] MEDS: CATHETER FLUSH 10 ML SYR IVP PRN ×2 (12:02→13:24)
[2023-01-31 13:15] VITALS: BP 153/103
== END ==
LOC: CARD 11:03
PROVIDERS: ATTEND Nurse Practitioner Family
DX: I08.0 Rheumatic disorders of both mitral and aortic valves (principal)
CPT/HCPCS: 93306

== ENCOUNTER 2023-02-05 09:55 | Outpatient (CLI) | payer MEDICARE | END 2023-02-05 10:20 | LOC: SLEEP 09:55 | PROVIDERS: ATTEND Otolaryngology Otolaryngology/Facial Plastic Surgery | DX: G47.33 Obstructive sleep apnea (adult) (pediatric) (principal); G47.36 Sleep related hypoventilation in conditions classified elsewhere; I10 Essential (primary) hypertension; R06.83 Snoring | CPT/HCPCS: G0399 ==

== ENCOUNTER → 2023-02-05 | Outpatient (CLI) | payer MEDICARE | LOC: CARD 09:58 | PROVIDERS: ATTEND Internal Medicine Cardiovascular Disease | DX: I48.0 Paroxysmal atrial fibrillation (principal); Z53.9 Procedure and treatment not carried out, unspecified reason ==

== ENCOUNTER 2023-02-13 07:21 | Day surgery (SDC) | payer MEDICARE ==
[~2023-02-13] VITALS: Ht 182.9 cm; Wt 114.8 kg
[2023-02-13] MEDS ORDERED: LACTATED RINGERS 1,000 ML IV STA (07:27)
[2023-02-13 07:45] VITALS: BP 126/89
[2023-02-13] MEDS ORDERED: PROPOFOL INJECTION 50 ML IV ONE (09:01)
[2023-02-13 09:40] VITALS: BP 142/77
[2023-02-13 09:45] VITALS: BP 124/67
--- NOTE | 2023-02-13 09:48 | Discharge Inst-Simple/Standard ---
Discharge Inst-Standard Patient Instructions/Follow Up Plan of Care/Instructions/FU: 2 weeks idris Activity as Tolerated: Yes Discharge Diet: Regular Diet (high fiber) LOUIS BLOCK DO Feb 13, 2023 09:48
[2023-02-13 09:50] VITALS: BP 124/67
--- NOTE | 2023-02-13 09:53 | Progress Note-Post Operative ---
Post-Operative Progess Note Surgeon (s)/Electric Meter Inspector (s) Surgeon LOUIS BLOCK DO Electric Meter Inspector: na Pre-Operative Diagnosis hx polyps Post-Operative Diagnosis colon polyps, diverticulosis Procedure & Operative Findings Date of Procedure 02/13/23 Procedure Performed/Findings colonoscopy c snare polypectomy x 1 and hot bx polypectomy x 2 Anesthesia Type per business process engineer Estimated Blood Loss Estimated blood loss (mL): na Specimens/Packing Specimens Removed polyps LOUIS BLOCK DO Feb 13, 2023 09:53
[2023-02-13 10:00] VITALS: BP 124/67
--- NOTE | 2023-02-13 12:43 | Anesthesia-General Post-Op ---
MAC Patient Condition Mental Status/LOC: Same as Preop Cardiovascular: Satisfactory Nausea/Vomiting: Absent Respiratory: Satisfactory Pain: Controlled Complications: Absent Post Op Complications Complications None Follow Up Care/Instructions Patient Instructions None needed. Anesthesiology Discharge Order Discharge Order Patient is doing well, no complaints, stable vital signs, no apparent adverse anesthesia problems. No complications reported per nursing. MARIA DE JESUS SOMERS CRNA Feb 13, 2023 12:43
--- NOTE | 2023-02-13 14:42 | OPERATIVE REPORT ---
DATE OF SERVICE: 02/13/2023 PREOPERATIVE DIAGNOSIS: History of polyps. POSTOPERATIVE DIAGNOSES: Colon polyps, diverticulosis. PROCEDURE: Colonoscopy with snare polypectomy x1, hot biopsy polypectomy x2. SURGEON: Louis Khan DO ANESTHESIA: Per COURT BAILIFF OR SHERIFF. ESTIMATED BLOOD LOSS: None. COMPLICATIONS: None. INDICATIONS: The patient is a 67-year-old male with history of polyps needing repeating colonoscopy. He understands risks and benefits of procedure and wished to proceed. Consent was signed in chart. DESCRIPTION OF PROCEDURE: The patient was taken to endoscopy suite, placed in left lateral recumbent position. Timeout was performed. Digital rectal exam was performed. No palpable polyps, masses or ulcerations. Scope was inserted in the rectum, advanced all the way to the cecum with minimal difficulty. Prep was adequate. Scope was then slowly retracted back. A polyp was present in the cecum, which snare polypectomy was performed. This was obtained for pathology. Scope was then continuously retracted back. No polyps, masses or ulcerations within the ascending colon. In the transverse colon, there was a small polyp, which hot biopsy polypectomy was performed. Just distal to this area, there was a larger flat polyp around the fold, which hot biopsy polypectomy was performed and fulgurated. Scope was then continuously retracted back. No polyps, masses or ulcerations in the remainder of the transverse, descending and sigmoid colon. Some diverticulosis throughout the left side of the colon. Once in the rectum, scope was retroflexed noting no other pathology. Scope was returned to its normal position, slowly withdrawn until completely removed. The patient tolerated the procedure well, no complications, taken to recovery room in stable condition. RECOMMENDATIONS: The patient will need repeat colonoscopy in 1-3 years, pending pathology. Concerned of the polyp that is more flat and around the fold. Any issues before that, be seen at that time. With diverticulosis, we recommend high fiber diet. Job ID: [id number] DocumentID: [id number] Dictated Date: 02/13/2023 09:53:05 Director Of Parks And Recreation Date: 02/13/2023 14:40:00 Dictated By: LOUIS KHAN DO
== END 2023-02-13 10:10 | disposition home or self-care (01) ==
LOC: ENDO 07:21
PROVIDERS: ATTEND Surgery
DX: Z12.11 Encounter for screening for malignant neoplasm of colon (principal); D12.0 Benign neoplasm of cecum; D12.3 Benign neoplasm of transverse colon; K57.30 Diverticulosis of large intestine without perforation or abscess without bleeding; Z87.891 Personal history of nicotine dependence; E66.01 Morbid (severe) obesity due to excess calories; Z85.820 Personal history of malignant melanoma of skin; Z98.61 Coronary angioplasty status

== ENCOUNTER 2023-03-07 19:59 | Outpatient (CLI) | payer MEDICARE | END 2023-03-08 06:15 | disposition home or self-care (01) | LOC: SLEEP 19:59 | PROVIDERS: ATTEND Otolaryngology Otolaryngology/Facial Plastic Surgery | DX: G47.33 Obstructive sleep apnea (adult) (pediatric) (principal) | CPT/HCPCS: 95811 ==